=== PATIENT | female | born 1995 | race American Indian/Alaskan Native ===

== ENCOUNTER 2016-03-11 21:40 | Emergency (ER) | payer MEDICAID ==
[2016-03-11 22:05] VITALS: BP 142/95
[2016-03-11 22:30] LABS: Basophils % (Auto) 0.6 % (0.0-1.8); Eosinophils % (Auto) 2.1 % (0.0-4.3); Hematocrit 37.9 % (30.3-42.9); Hemoglobin 12.7 gm/dl (10.1-14.3); Mean Corpuscular HGB Conc 34 % (30-34); Mean Corpuscular Hemoglobin 28 pg (28-32); Mean Corpuscular Volume 83 fl (79-97); Platelet Count 237 K/mm3 (140-440); Red Blood Count 4.56 M/mm3 (3.65-5.03); Red Cell Distribution Width 14.3 % (13.2-15.2); White Blood Count 5.4 K/mm3 (4.5-11.0)
[2016-03-11 22:49] LABS: Alanine Aminotransferase 13 units/L (7-56); Albumin 4.1 g/dL (3.9-5); Albumin/Globulin Ratio 1.5 %; Alkaline Phosphatase 86 units/L (35-129); Anion Gap 19 mmol/L; Bilirubin,Total < 0.2 mg/dL (0.1-1.2); Blood Urea Nitrogen 9 mg/dL (7-17); Carbon Dioxide 21 mmol/L (22-30); Chloride 103.2 mmol/L (98-107); Glucose 101 mg/dL (65-100); Lipase 28 units/L (13-60); Potassium 4.1 mmol/L (3.6-5.0); Sodium 139 mmol/L (137-145); Total Protein 6.8 g/dL (6.3-8.2)
[2016-03-11 23:25] LABS: Bilirubin,Urine NEG (Negative); Blood,Urine NEG (Negative); Ketones,Urine NEG (Negative); Leukocyte Esterase,Urine NEG (Negative); Mucus,Urine FEW /HPF; Nitrite,Urine NEG (Negative); Protein,Urine <15 mg/dL mg/dL (Negative); Urobilinogen,Urine < 2.0 mg/dL (<2.0)
== END 2016-03-12 20:08 | disposition left against medical advice (07) ==
LOC: ED 21:40
DX: R10.30 Lower abdominal pain, unspecified (principal); Z53.21 Procedure and treatment not carried out due to patient leaving prior to being seen by health care provider
CPT/HCPCS: 36415; 80053; 81001; 81025; 83690; 85025

== ENCOUNTER 2016-03-12 21:20 | Emergency (ER) | payer MEDICAID ==
[2016-03-13 00:30] VITALS: BP 135/69
[2016-03-13 01:26] LABS: Basophils % (Auto) 0.6 % (0.0-1.8); Hemoglobin 12.8 gm/dl (10.1-14.3); Mean Corpuscular HGB Conc 34 % (30-34); Mean Corpuscular Hemoglobin 28 pg (28-32); Mean Corpuscular Volume 83 fl (79-97); Platelet Count 237 K/mm3 (140-440); Red Blood Count 4.59 M/mm3 (3.65-5.03); Red Cell Distribution Width 14.3 % (13.2-15.2); White Blood Count 5.8 K/mm3 (4.5-11.0)
[2016-03-13 01:27] LABS: Bilirubin,Urine NEG (Negative); Blood,Urine NEG (Negative); Ketones,Urine NEG (Negative); Leukocyte Esterase,Urine SM (Negative); Mucus,Urine FEW /HPF; Nitrite,Urine NEG (Negative); Protein,Urine <15 mg/dL mg/dL (Negative); RBC,Urine < 1.0 /HPF (0.0-6.0); Urobilinogen,Urine < 2.0 mg/dL (<2.0)
[2016-03-13 01:30] LABS: Alanine Aminotransferase 12 units/L (7-56); Albumin 3.7 g/dL (3.9-5); Albumin/Globulin Ratio 1.2 %; Alkaline Phosphatase 86 units/L (35-129); Bilirubin,Total < 0.2 mg/dL (0.1-1.2); Blood Urea Nitrogen 8 mg/dL (7-17); Calcium 8.8 mg/dL (8.4-10.2); Carbon Dioxide 23 mmol/L (22-30); Chloride 101.1 mmol/L (98-107); Glucose 120 mg/dL (65-100); Lipase 25 units/L (13-60); Potassium 3.9 mmol/L (3.6-5.0); Sodium 137 mmol/L (137-145); Total Protein 6.8 g/dL (6.3-8.2)
[2016-03-13 01:40] LABS: Anion Gap 17 mmol/L
--- NOTE | 2016-03-13 08:09 | ED Elopement Review ---
ED Pt Elopement review - Results review Lab results: Laboratory Tests 03/13/16 03/13/16 03/13/16 00:38 00:38 01:05 WBC 5.8 RBC 4.59 Hgb 12.8 Hct 38.0 MCV 83 MCH 28 MCHC 34 RDW 14.3 Plt Count 237 Lymph % (Auto) 35.2 H [place] % (Auto) 7.3 Eos % (Auto) 2.0 Baso % (Auto) 0.6 Lymph # 2.1 [place] # 0.4 Eos # 0.1 Baso # 0.0 Seg Neutrophils % 54.9 Seg Neutrophils # 3.2 Sodium 137 Potassium 3.9 Chloride 101.1 Carbon Dioxide 23 Anion Gap 17 BUN 8 Creatinine 0.5 L Estimated GFR > 60 BUN/Creatinine Ratio 16.00 Glucose 120 H Calcium 8.8 Total Bilirubin < 0.2 AST 15 ALT 12 Alkaline Phosphatase 86 Total Protein 6.8 Albumin 3.7 L Albumin/Globulin Ratio 1.2 Lipase 25 Urine Color Yellow Urine Turbidity Slightly-cloudy Urine pH 5.0 Ur Specific [place] 1.025 Urine Protein <15 mg/dl Urine Glucose (UA) Neg Urine Ketones Neg Urine Blood Neg Urine Nitrite Neg Ur Reducing Substances Not Reportable Urine Bilirubin Neg Urine Ictotest Not Reportable Urine Urobilinogen < 2.0 Ur Leukocyte Esterase Sm Urine WBC (Auto) 2.0 Urine RBC (Auto) < 1.0 U Epithel Cells (Auto) 14.0 H Urine Mucus Few Urine HCG, Qual Positive A - Call Back decision Pt Call Back Decision: Call pt to return to ED [facility] (or follow-up with an OB/ SERVICE CENTER TECHNICIAN for ultrasound to rule out ectopic )
== END 2016-03-13 06:00 | disposition left against medical advice (07) ==
LOC: ED 21:20
DX: O20.9 Hemorrhage in early pregnancy, unspecified (principal); R10.9 Unspecified abdominal pain; Z3A.00 Weeks of gestation of pregnancy not specified; Z53.21 Procedure and treatment not carried out due to patient leaving prior to being seen by health care provider
CPT/HCPCS: 36415; 80053; 81001; 81025; 83690; 85025

== ENCOUNTER 2016-03-13 18:00 | Emergency (ER) | payer MEDICAID ==
--- NOTE | 2016-03-13 18:23 | Emergency Department Report ---
Chief Complaint: Urogenital-Female Stated Complaint: ABD PAIN Time Seen by Provider: 03/13/16 18:16 - HPI History of Present Illness: 20-year-old female presents today with abdominal pain and vaginal spotting during . Last menstrual period was January 27. Denies fever, chills, nausea, vomiting, chest pain, shortness of breath, urinary symptoms, vaginal discharge. - ROS Review of Systems: Per HPI - Exam Vital Signs: Vital Signs 03/13/16 18:08 Temperature 98.6 F Pulse Rate 93 H Respiratory 20 Rate Blood Pressure 136/88 O2 Sat by Pulse 99 Oximetry Physical Exam: General: 20-year-old female in no acute distress. Well-developed, well- nourished. CV: Regular rate and rhythm. Lungs: Clear to auscultation bilaterally. Abdomen: No tenderness to palpation. No guarding or rebound tenderness. MSE screening note: Focused history and physical exam performed. Due to findings the following was ordered: ED Disposition for MSE Condition: Stable
[2016-03-13 19:02] LABS: Basophils % (Auto) 2.1 % (0.0-1.8); Eosinophils % (Auto) 1.9 % (0.0-4.3); Hematocrit 38.2 % (30.3-42.9); Hemoglobin 12.4 gm/dl (10.1-14.3); Mean Corpuscular HGB Conc 33 % (30-34); Mean Corpuscular Hemoglobin 27 pg (28-32); Mean Corpuscular Volume 84 fl (79-97); Platelet Count 219 K/mm3 (140-440); Red Blood Count 4.56 M/mm3 (3.65-5.03); Red Cell Distribution Width 14.1 % (13.2-15.2); White Blood Count 4.8 K/mm3 (4.5-11.0)
[2016-03-13 19:21] LABS: Anion Gap 16 mmol/L; BUN/Creatinine Ratio 16.66; Blood Urea Nitrogen 10 mg/dL (7-17); Calcium 8.6 mg/dL (8.4-10.2); Carbon Dioxide 22 mmol/L (22-30); Chloride 100.2 mmol/L (98-107); Glucose 91 mg/dL (65-100); Potassium 4.1 mmol/L (3.6-5.0); Sodium 134 mmol/L (137-145)
[2016-03-13 19:30] LABS: Bilirubin,Urine NEG (Negative); Blood,Urine NEG (Negative); Ketones,Urine NEG (Negative); Leukocyte Esterase,Urine NEG (Negative); Mucus,Urine FEW /HPF; Nitrite,Urine NEG (Negative); Protein,Urine <15 mg/dL mg/dL (Negative); RBC,Urine < 1.0 /HPF (0.0-6.0); Urobilinogen,Urine < 2.0 mg/dL (<2.0); WBC,Urine < 1.0 /HPF (0.0-6.0)
--- NOTE | 2016-03-13 21:15 | Emergency Department Report ---
ED Female HPI - General Chief complaint: Urogenital-Female Stated complaint: ABD PAIN Time Seen by Provider: 03/13/16 18:16 Source: patient, RN notes reviewed, old records reviewed Mode of arrival: Ambulatory Limitations: No Limitations - History of Present Illness Initial comments: This is a 20-year-old female, previously unknown to me. She is 1, para 0. She reports her LMP is the beginning of this previous January. She presents to the ER complaining of vaginal bleeding. Vaginal bleeding started a few days ago. It started after sexual intercourse. She also admits to 2 weeks of lower abdominal cramping. There is no right lower quadrant pain. There is no vomiting. There is no chest pain, shortness of breath or diaphoresis. No irritative or obstructive urinary symptoms. Has not started care thus far. MD Complaint: vaginal bleeding, pelvic pain -: Gradual, week(s) Radiation: suprapubic Severity: mild, moderate Consistency: intermittent Improves with: none Worsens with: none Are you Now?: Yes Associated Symptoms: vaginal bleeding, abdominal pain. denies: vaginal discharge, nausea/vomiting, fever/chills, headaches, loss of appetite, dysuria, hematuria, rash, seizure, shortness of breath, syncope, weakness - Related Data Sexually active: Yes Home Medications Medication Instructions Recorded Confirmed Last Taken Sertraline [Zoloft] 50 mg PO QDAY 07/01/13 07/01/13 07/01/13 09:00 traZODone [Desyrel] 100 mg PO QHS 07/01/13 07/01/13 06/30/13 20:00 Previous Rx's Medication Instructions Recorded Last Taken Type Acetaminophen/Codeine [Tylenol #3] 1 tab PO Q6H PRN #14 tab 07/01/13 Unknown Rx Doxycycline [Vibramycin CAP] 100 mg PO BID #14 capsule 07/01/13 Unknown Rx Clindamycin [Clindamycin CAP] 300 mg PO Q8H #30 cap 01/27/16 Unknown Rx HYDROcodone/APAP 5-325 [Ruth 1 each PO Q6HR PRN #10 tablet 01/27/16 Unknown Rx 5/325] Ibuprofen [Motrin] 800 mg PO Q8HR PRN #15 tablet 01/31/16 Unknown Rx Doxylamine/Pyridoxine HCl 1 each PO QHS PRN #30 tablet. 03/13/16 Unknown Rx [Hola Mixon 10-10 mg Tablet] Vit W-Ca,Fe,FA(<1 mg) 1 each PO QDAY #30 tablet 03/13/16 Unknown Rx [ Vitamins] Allergies Allergy/AdvReac Type Severity Reaction Status Date / Time No Known Allergies Allergy Verified 01/29/16 14:11 ED Review of Systems ROS: Stated complaint: ABD PAIN Other details as noted in HPI Constitutional: denies: fever Eyes: denies: vision change ENT: denies: epistaxis Respiratory: denies: cough Cardiovascular: denies: chest pain Gastrointestinal: abdominal pain Genitourinary: abnormal menses. denies: urgency, dysuria, frequency, hematuria Musculoskeletal: denies: back pain, joint swelling, arthralgia Skin: denies: rash, lesions Neurological: denies: headache, weakness, paresthesias Psychiatric: denies: anxiety, depression ED Past Medical Hx - Past Medical History Previous Medical History?: No Hx Psychiatric Treatment: Yes (depression) Additional medical history: vocal cord surgery - Surgical History Additional Surgical History: vocal cords repair - Social History Smoking Status: Never Smoker Substance Use Type: None - Medications Home Medications: Home Medications Medication Instructions Recorded Confirmed Last Taken Type Acetaminophen/Codeine [Tylenol #3] 1 tab PO Q6H PRN #14 tab 07/01/13 Unknown Rx Doxycycline [Vibramycin CAP] 100 mg PO BID #14 capsule 07/01/13 Unknown Rx Sertraline [Zoloft] 50 mg PO QDAY 07/01/13 07/01/13 07/01/13 09:00 History traZODone [Desyrel] 100 mg PO QHS 07/01/13 07/01/13 06/30/13 20:00 History Clindamycin [Clindamycin CAP] 300 mg PO Q8H #30 cap 01/27/16 Unknown Rx HYDROcodone/APAP 5-325 [Ruth 1 each PO Q6HR PRN #10 tablet 01/27/16 Unknown Rx 5/325] Ibuprofen [Motrin] 800 mg PO Q8HR PRN #15 tablet 01/31/16 Unknown Rx Doxylamine/Pyridoxine HCl 1 each PO QHS PRN #30 tablet. 03/13/16 Unknown Rx [Hola Mixon 10-10 mg Tablet] Vit W-Ca,Fe,FA(<1 mg) 1 each PO QDAY #30 tablet 03/13/16 Unknown Rx [ Vitamins] ED Physical Exam - General Limitations: No Limitations General appearance: alert, in no apparent distress - Head Head exam: Present: atraumatic, normocephalic - Eye Eye exam: Present: normal appearance, EOMI. Absent: nystagmus - ENT ENT exam: Present: normal exam, normal orophraynx, mucous membranes moist - Neck Neck exam: Present: normal inspection, full ROM. Absent: tenderness, meningismus - Respiratory Respiratory exam: Present: normal lung sounds bilaterally. Absent: respiratory distress, wheezes, rales, rhonchi, stridor, chest wall tenderness, accessory muscle use, decreased breath sounds - Cardiovascular Cardiovascular Exam: Present: regular rate, normal rhythm, normal heart sounds. Absent: bradycardia, tachycardia, irregular rhythm, systolic murmur, diastolic murmur, rubs, gallop - GI/Abdominal GI/Abdominal exam: Present: soft, normal bowel sounds. Absent: distended, tenderness, guarding, rebound, rigid, pulsatile mass - External exam: Present: normal external exam Speculum exam: Present: normal speculum exam. Absent: cervical discharge, vaginal bleeding, foreign body Bi-manual exam: Present: normal bi-manual exam, other (escorted by nurse Ave avila). Absent: cervical motion tendernes, adnexal mass - Extremities Exam Extremities exam: Present: normal inspection, full ROM, normal capillary refill. Absent: tenderness, pedal edema, joint swelling, calf tenderness - Back Exam Back exam: Present: normal inspection, full ROM. Absent: tenderness, CVA tenderness (R), CVA tenderness (L), muscle spasm, paraspinal tenderness, vertebral tenderness - Neurological Exam Neurological exam: Present: alert, oriented X3, normal gait, other (Extraocular movements intact. Tongue midline. No facial droop. Facial sensation intact to light touch in the V1, V2, V3 distribution bilaterally. 5 and 5 strength in 4 extremities.. Sensation is intact to light touch in 4 extremities.). Absent : motor sensory deficit - Psychiatric Psychiatric exam: Present: normal affect, normal mood - Skin Skin exam: Present: warm, dry, intact, normal color. Absent: rash ED Course Vital Signs 03/13/16 03/13/16 03/13/16 18:08 21:23 21:25 Temperature 98.6 F 98.8 F Pulse Rate 93 H 90 Respiratory 20 20 20 Rate Blood Pressure 136/88 Blood Pressure 146/84 [Right] O2 Sat by Pulse 99 99 99 Oximetry 03/13/16 03/13/16 22:31 22:53 Temperature Pulse Rate Respiratory 18 18 Rate Blood Pressure Blood Pressure [Right] O2 Sat by Pulse Oximetry - Reevaluation(s) Reevaluation #1: 03/13/16 22:31 Differential diagnosis: Miscarriage, ectopic , urinary tract infection assessment and plan: 20-year-old female with resolved vaginal bleeding, pelvic ultrasound that demonstrates intrauterine . Has no irritative or obstructive urinary symptoms. Urinalysis not consistent with urinary tract infection. Abdomen is soft and benign, with no right lower quadrant tenderness , rebound or guarding. The patient is instructed to follow up with outpatient primary care doctor/[facility]PER[facility] doctor. She has been observed in the ER for a prolonged period of time without any issues, and is walking around, making multiple requests to be discharged. Her belly is soft, she is planning a cellular phone. She will be discharged. ED Medical Decision Making - Lab Data Result diagrams: 03/13/16 18:44 03/13/16 18:44 Vital Signs 03/13/16 18:08 Temperature 98.6 F Pulse Rate 93 H Respiratory 20 Rate Blood Pressure 136/88 O2 Sat by Pulse 99 Oximetry Temp Pulse Resp BP Pulse Ox 98.6 F 93 H 20 136/88 99 03/13/16 18:08 03/13/16 18:08 03/13/16 18:08 03/13/16 18:08 03/13/16 18:08 Lab Results 03/13/16 03/13/16 03/13/16 Range/Units 18:44 18:44 18:44 WBC 4.8 (4.5-11.0) K/mm3 RBC 4.56 (3.65-5.03) M/mm3 Hgb 12.4 (10.1-14.3) gm/dl Hct 38.2 (30.3-42.9) % MCV 84 (79-97) fl MCH 27 L (28-32) pg MCHC 33 (30-34) % RDW 14.1 (13.2-15.2) % Plt Count 219 (140-440) K/mm3 Lymph % (Auto) 36.7 H (13.4-35.0) % [place] % (Auto) 9.9 H (0.0-7.3) % Eos % (Auto) 1.9 (0.0-4.3) % Baso % (Auto) 2.1 H (0.0-1.8) % Lymph # 1.8 (1.2-5.4) K/mm3 [place] # 0.5 (0.0-0.8) K/mm3 Eos # 0.1 (0.0-0.4) K/mm3 Baso # 0.1 (0.0-0.1) K/mm3 Seg Neutrophils % 49.4 (40.0-70.0) % Seg Neutrophils # 2.4 (1.8-7.7) K/mm3 Sodium 134 L (137-145) mmol/L Potassium 4.1 (3.6-5.0) mmol/L Chloride 100.2 (98-107) mmol/L Carbon Dioxide 22 (22-30) mmol/L Anion Gap 16 mmol/L BUN 10 (7-17) mg/dL Creatinine 0.6 L (0.7-1.2) mg/dL Estimated GFR > 60 ml/min BUN/Creatinine Ratio 16.66 % Glucose 91 (65-100) mg/dL Calcium 8.6 (8.4-10.2) mg/dL HCG, Quant 8912 H (0-4) mIU/mL Urine Color (Yellow) Urine Turbidity (Clear) Urine pH (5.0-7.0) Ur Specific [place] (1.003-1.030) Urine Protein (Negative) mg/dL Urine Glucose (UA) (Negative) mg/dL Urine Ketones (Negative) mg/dL Urine Blood (Negative) Urine Nitrite (Negative) Urine Bilirubin (Negative) Urine Urobilinogen (<2.0) mg/dL Ur Leukocyte Esterase (Negative) Urine WBC (Auto) (0.0-6.0) /HPF Urine RBC (Auto) (0.0-6.0) /HPF U Epithel Cells (Auto) (0-13.0) /HPF Urine Mucus /HPF Blood Type Ord Rhogam Gestat Weeks WEEKS 03/13/16 03/13/16 Range/Units 18:44 19:15 WBC (4.5-11.0) K/mm3 RBC (3.65-5.03) M/mm3 Hgb (10.1-14.3) gm/dl Hct (30.3-42.9) % MCV (79-97) fl MCH (28-32) pg MCHC (30-34) % RDW (13.2-15.2) % Plt Count (140-440) K/mm3 Lymph % (Auto) (13.4-35.0) % [place] % (Auto) (0.0-7.3) % Eos % (Auto) (0.0-4.3) % Baso % (Auto) (0.0-1.8) % Lymph # (1.2-5.4) K/mm3 [place] # (0.0-0.8) K/mm3 Eos # (0.0-0.4) K/mm3 Baso # (0.0-0.1) K/mm3 Seg Neutrophils % (40.0-70.0) % Seg Neutrophils # (1.8-7.7) K/mm3 Sodium (137-145) mmol/L Potassium (3.6-5.0) mmol/L Chloride (98-107) mmol/L Carbon Dioxide (22-30) mmol/L Anion Gap mmol/L BUN (7-17) mg/dL Creatinine (0.7-1.2) mg/dL Estimated GFR ml/min BUN/Creatinine Ratio % Glucose (65-100) mg/dL Calcium (8.4-10.2) mg/dL HCG, Quant (0-4) mIU/mL Urine Color Yellow (Yellow) Urine Turbidity Clear (Clear) Urine pH 6.0 (5.0-7.0) Ur Specific [place] 1.017 (1.003-1.030) Urine Protein <15 mg/dl (Negative) mg/dL Urine Glucose (UA) Neg (Negative) mg/dL Urine Ketones Neg (Negative) mg/dL Urine Blood Neg (Negative) Urine Nitrite Neg (Negative) Urine Bilirubin Neg (Negative) Urine Urobilinogen < 2.0 (<2.0) mg/dL Ur Leukocyte Esterase Neg (Negative) Urine WBC (Auto) < 1.0 (0.0-6.0) /HPF Urine RBC (Auto) < 1.0 (0.0-6.0) /HPF U Epithel Cells (Auto) < 1.0 (0-13.0) /HPF Urine Mucus Few /HPF Blood Type A POSITIVE Ord Rhogam Gestat Weeks Rh pos WEEKS - Radiology Data Radiology results: report reviewed, image reviewed Transvaginal and transabdominal ultrasound demonstrated intrauterine . Gestational sac is noted in the endometrial canal. It looks sac is noted. No pole is identified. Complex 2 cm lesion is noted this may be a collapsed list in the ovary. viability is uncertain. Critical care attestation.: If time is entered above; I have spent that time in minutes in the direct care of this critically ill patient, excluding procedure time. ED Disposition Clinical Impression: Threatened miscarriage in early Disposition: DISCHARGED TO HOME OR SELFCARE Is pt being admited?: No Does the pt Need Aspirin: No Condition: Stable Instructions: Threatened Miscarriage (ED) Additional Instructions: Rest and avoid heavy lifting. Avoid strenuous physical activity. Follow up with an telecasting engineer within the next week to initiate care. Take nausea medication, vitamins as directed. Do not engage in sexual activity until cleared by an [facility]ILITY OPERATOR. Return to the ER right away with new pain , worsening pain, migration of pain, fevers, chills, intractable nausea or vomiting, inability to tolerate liquid feeds, bleeding more than 2 pads soaked through and through per hour. Furthermore, blood pressure was slightly elevated. This should be followed up by an telecasting engineer within the next week as directed. Complications of hypertension/elevated blood pressure during included eclampsia, preeclampsia, and can cause disability, , paralysis. Prescriptions: Doxylamine/Pyridoxine HCl [Hola Mixon 10-10 mg Tablet] 1 each PO QHS PRN #30 tablet.dr ANTHONY Reason: Nausea Vit W-Ca,Fe,FA(<1 mg) [ Vitamins] 1 each PO QDAY #30 tablet Referrals: PRIMARY CAREMD [Primary Care Provider] - 3-5 Days CALI MARTINO MD [Staff Physician] - 3-5 Days [facility] [Provider Group] - 3-5 Days [facility] [Provider Group] - 3-5 Days
[2016-03-13 21:24] VITALS: BP 146/84
--- NOTE | 2016-03-13 22:04 | Ultrasound Report ---
FINAL REPORT PROCEDURE: US OB TRANSVAGINAL TECHNIQUE: Real-time transabdominal and transvaginal sonography of the uterus, placenta, amniotic fluid, adnexa, and fetus was performed with image documentation. Measurements were obtained to determine age/size. M-mode Doppler was used to document heartbeat. CPT 07927 and 67182 HISTORY: vag bleeding COMPARISON: No prior studies are available for comparison. FINDINGS: A gestational sac is seen in the endometrial canal. It contains a yolk sac but no pole is identified. Mean sac diameter is 1 cm corresponding to 5 weeks 6 days gestational age. Estimated date of delivery based on this measurement is November 07, 2016. Right ovary measures 3.7 x 1.9 x 2.2 cm. Left ovary measures 2.7 x 1.6 x 1.7 cm. Complex 2 cm lesion is seen in the that may be a collapsed cyst. No free pelvic fluid is seen. IMPRESSION: Likely very early IUP is seen at five weeks 6 days gestational age. viability is uncertain as pole is not yet identified. Correlation with serial quantitative beta HCG levels may be useful. Followup ultrasound in 1-2 weeks time is recommended.
--- NOTE | 2016-03-13 22:05 | Ultrasound Report ---
FINAL REPORT PROCEDURE: US OB < = 14 WEEKS FETUS TECHNIQUE: Real-time transabdominal and transvaginal sonography of the uterus, placenta, amniotic fluid, adnexa, and fetus was performed with image documentation. Measurements were obtained to determine age/size. M-mode Doppler was used to document heartbeat. CPT 64272 and 58345 HISTORY: Vaginal bleeding COMPARISON: No prior studies are available for comparison. FINDINGS: A gestational sac is seen in the endometrial canal. It contains a yolk sac but no pole is identified. Mean sac diameter is 1 cm corresponding to 5 weeks 6 days gestational age. Estimated date of delivery based on this measurement is November 07, 2016. Right ovary measures 3.7 x 1.9 x 2.2 cm. Left ovary measures 2.7 x 1.6 x 1.7 cm. Complex 2 cm lesion is seen in the that may be a collapsed cyst. No free pelvic fluid is seen. IMPRESSION: Likely very early IUP is seen at five weeks 6 days gestational age. viability is uncertain as pole is not yet identified. Correlation with serial quantitative beta HCG levels may be useful. Followup ultrasound in 1-2 weeks time is recommended.
[2016-03-13] MEDS ORDERED: TYLENOL ONE (22:26)
[2016-03-13] MEDS ORDERED: TYLENOL PO ONE (22:27)
== END 2016-03-13 23:00 | disposition home or self-care (01) ==
LOC: ED 18:00
DX: O20.0 Threatened abortion (principal); Z3A.01 Less than 8 weeks gestation of pregnancy
CPT/HCPCS: 36415; 76801; 76817; 80048; 81001; 84702; 85025; 86900; 86901

== ENCOUNTER 2016-07-14 10:20 | Outpatient (CLI) | payer MEDICAID ==
[2016-07-14] MEDS ORDERED: LACTATED RINGERS 500 ML IV ONE (10:30)
[2016-07-14 10:47] VITALS: BP 117/63
[2016-07-14 11:36] LABS: Urine Drugs of Abuse Note Disclamer
[2016-07-14 11:54] LABS: Bilirubin,Urine NEG (Negative); Blood,Urine NEG (Negative); Ketones,Urine 20 mg/dL (Negative); Leukocyte Esterase,Urine NEG (Negative); Mucus,Urine 1+ /HPF; Nitrite,Urine NEG (Negative); Protein,Urine <15 mg/dL mg/dL (Negative); Urobilinogen,Urine < 2.0 mg/dL (<2.0)
== END 2016-07-14 11:26 | disposition home or self-care (01) ==
LOC: TRG 10:20
PROVIDERS: ATTEND Obstetrics & Gynecology
DX: O47.02 False labor before 37 completed weeks of gestation, second trimester (principal); Z3A.23 23 weeks gestation of pregnancy
CPT/HCPCS: 80307; 81001

== ENCOUNTER 2016-08-13 19:38 | Outpatient (CLI) | payer MEDICAID ==
[2016-08-13 20:49] VITALS: BP 104/44
[2016-08-13] MEDS ORDERED: LACTATED RINGERS 500 ML IV ONE (22:57)
[2016-08-14 00:22] LABS: Bilirubin,Urine NEG (Negative); Blood,Urine NEG (Negative); Ketones,Urine TR mg/dL (Negative); Leukocyte Esterase,Urine NEG (Negative); Mucus,Urine 1+ /HPF; Nitrite,Urine NEG (Negative); Urobilinogen,Urine < 2.0 mg/dL (<2.0)
== END 2016-08-13 23:18 | disposition home or self-care (01) ==
LOC: TRG 19:38
PROVIDERS: ATTEND Obstetrics & Gynecology
DX: O26.853 Spotting complicating pregnancy, third trimester (principal); O26.893 Other specified pregnancy related conditions, third trimester; R25.2 Cramp and spasm; Z3A.28 28 weeks gestation of pregnancy
CPT/HCPCS: 81001; J7120; 59025

== ENCOUNTER 2018-07-01 22:18 | Emergency (ER) | payer MEDICAID ==
[2018-07-01 22:47] VITALS: BP 157/91
[2018-07-01 23:27] LABS: Basophils % (Auto) 0.3 % (0.0-1.8); Eosinophils # (Auto) 0.1 K/mm3 (0.0-0.4); Eosinophils % (Auto) 0.9 % (0.0-4.3); Hemoglobin 8.6 gm/dl (10.1-14.3); Lymphocytes % (Auto) 29.7 % (13.4-35.0); Mean Corpuscular HGB Conc 31 % (30-34); Monocytes # (Auto) 0.7 K/mm3 (0.0-0.8); Monocytes % (Auto) 9.8 % (0.0-7.3); Platelet Count 219 K/mm3 (140-440); Red Blood Count 4.39 M/mm3 (3.65-5.03)
[2018-07-01 23:35] LABS: Mean Corpuscular Volume 64 fl (79-97); Red Cell Distribution Width 21.9 % (13.2-15.2)
[2018-07-01 23:52] LABS: Alanine Aminotransferase 10 units/L (7-56); Albumin 3.2 g/dL (3.9-5); Blood Urea Nitrogen 9 mg/dL (7-17); Calcium 9.1 mg/dL (8.4-10.2); Hemolysis Index 1
[2018-07-02 00:19] LABS: BUN/Creatinine Ratio 23
== END 2018-07-02 01:37 | disposition left against medical advice (07) ==
LOC: ED 22:18
DX: R10.9 Unspecified abdominal pain (principal); Z53.21 Procedure and treatment not carried out due to patient leaving prior to being seen by health care provider
CPT/HCPCS: 36415; 80053; 84702; 85025

== ENCOUNTER 2018-10-15 20:57 | Observation (INO) | payer MEDICAID ==
--- NOTE | 2018-10-15 21:35 | History and Physical Report ---
History of Present Illness Date of examination: 10/15/18 Date of admission: 10/15/18 21:03 Chief complaint: headache, shaking, unable to get glucometer History of present illness: Pt is a 23 year old -[place] female NEGRITO 12/05/18 at 32w6d presents complaining of back pain, shaking and headache for two hours on the day of admission. She was discharged earlier today after being hospitalized for management of gestational diabetes and gestational hypertension. She reports that she was unable to get the glucometer she was prescribed secondary to an insurance issue. She has had very limited care x 1 visit with [facility] Motorcycle Mechanic Apprentice. Past History Past Medical History: hypertension (gestational hypertension), diabetes (gestational diabetes requiring insulin ), other (Obesity ) Past Surgical History: section Family/Genetic History: diabetes Social history: no significant social history - Obstetrical History Expected Date of Delivery: 12/05/18 Actual Gestation: 32 Week(s) 6 Day(s) : 2 Para: 1 Hx # Term Pregnancies: 1 Number of Pregnancies: 0 Spontaneous Abortions: 0 Induced : 0 Number of Living Children: 1 Medications and Allergies Allergies Allergy/AdvReac Type Severity Reaction Status Date / Time No Known Allergies Allergy Verified 10/12/18 15:39 Home Medications Medication Instructions Recorded Confirmed Last Taken Type Butalb/Acetaminophen/Caffeine 1 cap PO Q6HR PRN #30 cap 10/15/18 Unknown Rx [Fioricet 50-300-40 mg CAP] metFORMIN [Glucophage] 500 mg PO BID #60 tablet 10/15/18 Unknown Rx Review of Systems All systems: negative - Obstetrical FHR: auscultation normal Results Result Diagrams: 10/15/18 23:58 Abnormal lab results 10/15/18 Range/Units 21:31 POC Glucose 160 H (70-105) All other labs normal. Assessment and Plan A: IUP at 32w6d Headache, shaking without access to glucometer outpatient Gestational Hypertension s/p recent 24 hr urine with less than 300 mg of protein Gestational Diabetes requiring insuline, non-compliant Morbid Obesity Previous x 1 Insufficient care P: Admit to antepartum service for observation. Restart insulin regimen Case management consult to aid in obtaining glucometer Monitor maternal and status
[2018-10-15] MEDS ORDERED: TYLENOL PO PRN (23:06)
[2018-10-15] MEDS ORDERED: ZOFRAN IV PRN (23:06)
[2018-10-15] MEDS ORDERED: DEEP SEA NS PRN (23:06)
[2018-10-15] MEDS ORDERED: COLACE PO PRN (23:06)
[2018-10-15] MEDS ORDERED: D50W (25GM) Syringe IV PRN (23:13)
[2018-10-15] MEDS ORDERED: FIORICET PO PRN (23:15)
[2018-10-15] MEDS: AMBIEN PO PRN (23:57)
[2018-10-16 00:12] LABS: Hematocrit 26.4 % (30.3-42.9); Hemoglobin 8.4 gm/dl (10.1-14.3); Mean Corpuscular HGB Conc 32 % (30-34); Platelet Count 170 K/mm3 (140-440); Red Blood Count 3.85 M/mm3 (3.65-5.03); Red Cell Distribution Width 19.3 % (13.2-15.2)
[2018-10-16 00:13] LABS: Mean Corpuscular Volume 69 fl (79-97)
[2018-10-16] MEDS ORDERED: HumuLIN R SUB-Q SCH (07:30)
[2018-10-16] MEDS: HumuLIN R SUB-Q SCH ×2 (08:59→18:01)
[2018-10-16] MEDS ORDERED: PRENATAL VITAMIN PO SCH (10:00)
--- NOTE | 2018-10-16 13:36 | Consultation ---
History of Present Illness Consult date: 10/16/18 Reason for consult: other (Noncompliant GDM and GHTN) History of present illness: Ms. Kurt James is a 23 year old -[place] female NEGRITO 12/05/18 at 32w6d with a limited care with [facility] and history of noncompliance with GDM and GHTN. She recently signed out AMA on 10/15/18 from [facility]. She was readmitted last night, 10/15/18, due to complaints of "back pain, I was shaking, I was lightheaded, and I had a headache." She states "I don't want to be on insulin because I can't stick myself. They gave me some pills (Metformin) for my blod sugar yesterday for me to start taking." She denies PIH symptoms. She denies contractions, leaking of fluid, and bleeding. She reports positive movements. Past History Past Medical History: hypertension (gestational hypertension), diabetes (gestational diabetes requiring insulin ), other (Obesity ) Past Surgical History: section Family/Genetic History: diabetes - Obstetrical History : 2 Medications and Allergies Allergies Allergy/AdvReac Type Severity Reaction Status Date / Time No Known Allergies Allergy Verified 10/12/18 15:39 Home Medications Medication Instructions Recorded Confirmed Last Taken Type Butalb/Acetaminophen/Caffeine 1 cap PO Q6HR PRN #30 cap 10/15/18 Unknown Rx [Fioricet 50-300-40 mg CAP] metFORMIN [Glucophage] 500 mg PO BID #60 tablet 10/15/18 Unknown Rx Active Meds: Active Medications Acetaminophen (Tylenol) 650 mg PO Q4H PRN PRN Reason: Pain MILD(1-3)/Fever >100.5/BAILEY Acetaminophen/Butalbital/Caffeine (Fioricet) 2 tab PO Q4H PRN PRN Reason: Headache Dextrose (D50w (25gm) Syringe) 50 ml IV PRN PRN PRN Reason: Hypoglycemia Docusate Sodium (Colace) 100 mg PO Q12H PRN PRN Reason: Constipation Insulin Human NPH (Humulin N) 44 unit SUB-Q QDDIAB AISHA Last Admin: 10/16/18 09:00 Dose: 44 unit Documented by: Insulin Human NPH (Humulin N) 14 unit SUB-Q QPM@2200 [facility] Insulin Human Regular (Humulin R) 20 units SUB-Q QDDIAB AISHA Last Admin: 10/16/18 08:59 Dose: 20 units Documented by: Insulin Human Regular (Humulin R) 14 units SUB-Q QPMDIAB [facility] Insulin Human Regular (Humulin R) 0 units SUB-Q ACHS [facility]; Protocol Multivitamins/Iron/Calcium ( Vitamin) 1 each PO QDAY [facility] Ondansetron HCl (Zofran) 4 mg IV Q6H PRN PRN Reason: Nausea And Vomiting Sodium Chloride (Deep Sea) 2 spray NS Q4H PRN PRN Reason: Congestion Zolpidem Tartrate (Ambien) 10 mg PO ONCE PRN PRN Reason: Sleep Last Admin: 10/15/18 23:57 Dose: 10 mg Documented by: Review of Systems Constitutional: other (denies fatigue, malaise, fevers) Eyes: other (denies visual disturbances) Ears, nose, mouth and throat: deferred Cardiovascular: lightheadedness, leg edema, other (denies chest pain, palpitations, SOB) Respiratory: other (denies SOB, wheezing, coughing) Breasts: deferred Gastrointestinal: other (denies diarrhea, constipation, nausea, RUQ pain) Genitourinary: other (denies contractions, leaking of fluid, and bleeding) Rectal Exam: deferred Neurological: other (denies headaches) - Vital Signs Vital signs: Vital Signs Pulse BP 98 H 136/64 10/15/18 22:44 10/15/18 22:44 Temp Pulse Resp BP Pulse Ox 98 F 100 H 20 131/69 10/15/18 23:45 10/16/18 11:48 10/15/18 23:45 10/16/18 11:48 Results Result Diagrams: 10/15/18 23:58 Abnormal lab results 10/15/18 10/15/18 10/16/18 Range/Units 21:31 23:58 06:23 Hgb 8.4 L (10.1-14.3) gm/dl Hct 26.4 L (30.3-42.9) % MCV 69 L (79-97) fl MCH 22 L (28-32) pg RDW 19.3 H (13.2-15.2) % POC Glucose 160 H 127 H (70-105) 10/16/18 Range/Units 11:57 Hgb (10.1-14.3) gm/dl Hct (30.3-42.9) % MCV (79-97) fl MCH (28-32) pg RDW (13.2-15.2) % POC Glucose 113 H (70-105) All other labs normal. Assessment and Plan A- IUP at 32w6d VSS- BPs 130s/60s Denies PIH symptoms Glucose levels stable on sliding scale insulin Noncompliant GDM- noncompliance with outpatient managemet Noncompliant GHTN- s/p 24 hour urine protein with previous admission Morbid Obesity Previous x 1 Insufficient care I discussed with Ms. James and her mother about the importance of compliance with GDM and GHTN diagnoses. She was informed that without proper management and control of GDM/GHTN, poor maternal and risks can arise especially increased risk for stroke, placental abruption, and intrauterine demise. I discussed compliance of at home glucose monitoring with following an ADA diet in addition to medication management for patient. She and her mother verbalized understanding. P- Continue plan of care With control of blood glucose levels, pt could be discharged Continue insulin management while inpatient. Case management consult to aid in obtaining glucometer monitoring Monitor for Preeclampsia symptoms. Thank you for you consult. For additional questions/concerns, please contact [facility] lease administration supervisor MD (Dr. Lal).
[2018-10-16] MEDS ORDERED: LACTATED RINGERS 1,000 ML ONE (15:04)
--- NOTE | 2018-10-16 16:19 | Ultrasound Report ---
ULTRASOUND BIOPHYSICAL PROFILE ULTRASOUND OB LIMITED INDICATION: UNABLE TO LOCATE HEART TONES. well-being. TECHNIQUE: Transabdominal ultrasound imaging. COMPARISON: 10/14/2008 FINDINGS: breathing movement = 2 Gross body movement = 2 tone = 2 Qualitative amniotic fluid volume = 2 Total biophysical score = 8/8 Amniotic fluid index is 11.4 cm. Presentation is breech. heart rate is 137 beats per minute. IMPRESSION: biophysical profile equals 8/8. Signer Name: Madhu Prieto Jr, MD Signed: 10/16/2018 4:15 PM Workstation Name: [id number]
[2018-10-16] MEDS: AMBIEN PO PRN (20:17)
--- NOTE | 2018-10-17 07:48 | Progress Note ---
Assessment and Plan A: IUP at 33w0d Gestational Hypertension s/p recent 24 hr urine with less than 300 mg of protein Gestational Diabetes requiring insuline, non-compliant Morbid Obesity Previous x 1 Insufficient care P: Ensure pt had glucometer Consider discharge later today. Subjective - Subjective Date of service: 10/17/18 Principal diagnosis: IUP at 33 wks, GHTN, GDM, Morbid Obesity, Insufficient PNC Interval history: Pt feels frustrated and feels the nursing staff wants her to go home so she attempted to leave AMA last night. Today she is feeling better. No obstetric complaints. Patient reports: no new complaints Objective - Vital Signs Vital Signs: Vital Signs - 12hr 10/16/18 10/16/18 10/16/18 20:17 20:58 21:58 Pulse Rate 100 H Respiratory 18 18 Rate Blood Pressure 126/59 - Exam Abdomen: Present: soft (obese, gravid ) Uterus: Present: normal FHR: auscultation normal Uterine Contraction Monitor Mode: External Uterine Contraction Pattern: Absent Uterine Tone Measurement Phase: Resting Extremities: edema - Labs Labs: Abnormal Labs 10/15/18 10/15/18 10/16/18 21:31 23:58 06:23 Hgb 8.4 L Hct 26.4 L MCV 69 L MCH 22 L RDW 19.3 H POC Glucose 160 H 127 H 10/16/18 10/16/18 11:57 18:04 Hgb Hct MCV MCH RDW POC Glucose 113 H 122 H Laboratory Results - last 24 hr 10/16/18 10/16/18 10/16/18 11:57 18:04 23:21 POC Glucose 113 H 122 H 103
[2018-10-17] MEDS: HumuLIN R SUB-Q SCH ×2 (08:34→17:22)
--- NOTE | 2018-10-17 17:58 | Event Note ---
Date: 10/17/18 Pt informed that I would like her to have her glucometer in hand prior to discharge but her only transportation is refusing to return until patient is discharged. All glucose values currently within range. Plan to discharge pt with follow up in 1 week in the office and with MFM.
[2018-10-17 18:04] VITALS: BP 133/54
--- NOTE | 2018-10-17 18:05 | Discharge Summary ---
Providers - Providers Date of Admission: 10/15/18 21:03 Date of discharge: 10/17/18 Attending physician: ARMIN PERRY 10/15/18 23:06 Consult to Physician [CONS] Routine Comment: Consulting Provider: YUKI SCHAFFER Physician Instructions: Reason For Exam: IUP art 32 wks, gdm, ghtn, noncompliant 10/15/18 23:07 Consult to Dietitian/Nutrition [CONS] Routine Physician Instructions: Reason For Exam: Reason for Consult: Diet education Primary care physician: ARMIN PERRY Hospitalization Reason for admission: other (headache) Procedure details: Diabetic teaching Fioricet administration Discharge diagnosis: other (IUP at 33 wks, GHTN GDM, Morbid Obesity, Insufficient care ) Hospital course: Pt was admitted for headache. She received glucose monitoring and insulin as recommended by MFM. She refuses to take insulin at home so she has been prescribed Metformin. She will follow up in the office and with MFM next week. Condition at discharge: Stable Disposition: DC-01 TO HOME OR SELFCARE - Discharge Diagnoses (1) Headache Status: Acute Qualifiers: Headache type: unspecified Headache chronicity pattern: unspecified pattern Intractability: not intractable Qualified Code(s): R51 - Headache (2) Gestational diabetes Status: Acute Qualifiers: Gestational diabetes mellitus control: unspecified Trimester: third trimester Qualified Code(s): O24.419 - Gestational diabetes mellitus in , unspecified control (3) Gestational hypertension Status: Acute Qualifiers: Trimester: third trimester Qualified Code(s): O13.3 - Gestational [-induced] hypertension without significant proteinuria, third trimester (4) Insufficient care Status: Acute Qualifiers: Trimester: third trimester Qualified Code(s): O09.33 - Supervision of with insufficient care, third trimester (5) Morbid obesity Status: Acute Plan - Discharge Medications Prescriptions: Butalb/Acetaminophen/Caffeine [Fioricet 50-300-40 mg CAP] 1 cap PO Q6HR PRN #30 cap PRN Reason: Headache metFORMIN [Glucophage] 500 mg PO BID #60 tablet - Provider Discharge Summary Activity: routine Diet: other (Diabetic 2200 calorie diet with 3 snacks per day) Additional instructions: [] Smoking cessation referral if applicable(refer to patient education folder for contact #) [] [facility] Call your doctor immediately for: * Fever > 100.5 * Heavy vaginal bleeding ( >1 pad per hour) * Severe persistent headache * Shortness of breath * Reddened, hot, painful area to leg or breast * Drainage or odor from incision. * Keep incision clean and dry at all times and follow doctor's instructions regarding bathing/showering - Follow up plan Follow up: ARMIN PERRY MD [Primary Care Provider] - 10/21/18 (Please call the office to schedule an appt on 10/21/18 or 10/22/18. Please bring your glucose log to all visits. )
== END 2018-10-17 18:28 | disposition home or self-care (01) ==
LOC: TRG 20:57 → LD 21:03 → INTOOBSV 21:03
PROVIDERS: ADMIT Obstetrics & Gynecology; ATTEND Obstetrics & Gynecology
DX: O26.893 Other specified pregnancy related conditions, third trimester (principal); R51 Headache; O13.3 Gestational [pregnancy-induced] hypertension without significant proteinuria, third trimester; O24.419 Gestational diabetes mellitus in pregnancy, unspecified control; Z3A.34 34 weeks gestation of pregnancy
CPT/HCPCS: 36415; 76815; 76819; 82962; 85027; 86850; 86900; 86901; 96372; G0378; J7120; J1815

== ENCOUNTER 2018-10-22 17:33 | Observation (INO) | payer MEDICAID ==
[2018-10-22 18:25] VITALS: BP 127/87
[2018-10-22] MEDS ORDERED: LACTATED RINGERS 500 ML IV ONE (19:39)
[2018-10-22 19:48] LABS: Bilirubin,Urine NEG (Negative); Blood,Urine NEG (Negative); Color,Urine Yellow (Yellow); Mucus,Urine 1+ /HPF; Urobilinogen,Urine < 2.0 mg/dL (<2.0)
[2018-10-22] MEDS ORDERED: GLUCOPHAGE PO ONE (20:00)
--- NOTE | 2018-10-22 21:26 | Ultrasound Report ---
ULTRASOUND BIOPHYSICAL PROFILE AND LIMITED OB ULTRASOUND INDICATION / CLINICAL INFORMATION: well-being. COMPARISON: None available. FINDINGS: BREATHING MOVEMENT = 2 GROSS BODY MOVEMENT = 2 TONE = 2 QUALITATIVE AMNIOTIC FLUID VOLUME = 2 TOTAL BIOPHYSICAL SCORE = 10/03 AMNIOTIC FLUID VOLUME (ENEIDA) = 23.2 cm PRESENTATION: Cephalic. HEART RATE (beats per minute): 137 IMPRESSION: biophysical profile = 10/03 Signer Name: Good Ansari MD Signed: 10/22/2018 9:22 PM Workstation Name: [id number]
== END 2018-10-22 23:10 | disposition home or self-care (01) ==
LOC: LD 17:33
PROVIDERS: ADMIT Obstetrics & Gynecology; ATTEND Obstetrics & Gynecology
DX: O24.419 Gestational diabetes mellitus in pregnancy, unspecified control (principal); Z3A.33 33 weeks gestation of pregnancy
CPT/HCPCS: 76815; 76819; 81001; 82962; G0378; G0379; J7120

== ENCOUNTER 2018-11-06 11:18 | Inpatient (IN) | payer MEDICAID ==
[2018-11-06] MEDS ORDERED: LACTATED RINGERS 1,000 ML ONE ×2 (13:31→17:30)
--- NOTE | 2018-11-06 13:53 | Consultation ---
History of Present Illness Consult date: 11/06/18 History of present illness: HPI 23 y/o NEGRITO 12/05/18 EGA at 35 6/7 weeks Presented with PTC's and Known GDM (Denies Pregest DM) Known Patient non compliant missing appointments-refused Insulin and not taking Metformin " I was to take 500 twice per day but not taking" Contractions q 2 to 7 minutes - closed per Dr. Sina Graham Denies leakage vag bleeding BS reported 110 [facility] US done 10/30/18 - EFW at 3400 grams 99% EFM Ctx q 2 to 7 minutes 140 reactive OB hist C/S at 39 weeks 9 pound baby Denies H/o Pregest DM Denies other med ds NKA No CDD No STD AFEB 119/57 Abd MO sl tender during contraction Ext NT tr edema DTR 03/01 no clonus Vag per Dr. Graham - closed Past History - Obstetrical History : 2 Medications and Allergies Allergies Allergy/AdvReac Type Severity Reaction Status Date / Time No Known Allergies Allergy Verified 10/12/18 15:39 Home Medications Medication Instructions Recorded Confirmed Last Taken Type Butalb/Acetaminophen/Caffeine 1 cap PO Q6HR PRN #30 cap 10/15/18 Unknown Rx [Fioricet 50-300-40 mg CAP] metFORMIN [Glucophage] 500 mg PO BID #60 tablet 10/15/18 Unknown Rx Butalb/Acetaminophen/Caffeine 1 cap PO Q6HR PRN #30 cap 10/17/18 Unknown Rx [Fioricet 50-300-40 mg CAP] metFORMIN [Glucophage] 500 mg PO BID #60 tablet 10/17/18 Unknown Rx - Vital Signs Vital signs: Vital Signs Pulse BP 102 H 119/57 11/06/18 11:38 11/06/18 11:38 Temp Pulse Resp BP Pulse Ox 98.0 F 102 H 24 119/57 98 11/06/18 12:14 11/06/18 13:39 11/06/18 12:14 11/06/18 11:38 11/06/18 13:39 Results All other labs normal. Assessment and Plan Impression: 1. [place] IUP at 35 6/7 weeks 2. GDM A2 - Noncompliant 3. PTL 4. Prior C/S 5. MO 6. LGA Recommendations: 1. Steroids for FLM 2. Reg Insulin for BS > 140 (if she will accept Sliding Scale Reg Insulin BS's Reg Insulin 140-160 4 units 161-180 6 units 181-200 8 units 201-220 10 units 221-240 12 Units 241-260 14 units 261-280 16 units 281-300 20 units Call > 300 3. Patient non compliant see above - Explained that if she refuses insulin and follow up we would proceed with repeat C/S also due to PTL 4. Patient understands early delivery could result in baby with resp difficulty and admission to NICU - 5. Labs: HbA1c, CBC, Type Screen, CMP, UA 6. Accuchecks fastings and 2 hour PP's 7. NICU consult 8. US - BPP 9. Discussed with Dr. Sina Graham
[2018-11-06] MEDS: CELESTONE SOLUSPAN IM SCH (15:24)
[2018-11-06 16:06] LABS: Basophils # (Auto) 0.1 K/mm3 (0.0-0.1); Basophils % (Auto) 0.8 % (0.0-1.8); Eosinophils % (Auto) 0.3 % (0.0-4.3); Hematocrit 28.2 % (30.3-42.9); Hemoglobin 8.7 gm/dl (10.1-14.3); Lymphocytes # (Auto) 1.6 K/mm3 (1.2-5.4); Lymphocytes % (Auto) 20.8 % (13.4-35.0); Mean Corpuscular HGB Conc 31 % (30-34); Monocytes # (Auto) 0.6 K/mm3 (0.0-0.8); Monocytes % (Auto) 8.3 % (0.0-7.3); Platelet Count 181 K/mm3 (140-440); Red Blood Count 4.21 M/mm3 (3.65-5.03); Red Cell Distribution Width 19.3 % (13.2-15.2)
[2018-11-06 16:14] LABS: Mean Corpuscular Volume 67 fl (79-97)
[2018-11-06] MEDS ORDERED: STADOL IV PRN (17:27)
[2018-11-06] MEDS ORDERED: SUBLIMAZE IV PRN (17:27)
[2018-11-06] MEDS ORDERED: BRETHINE IVP PRN (17:27)
[2018-11-06] MEDS ORDERED: BRETHINE SUB-Q PRN (17:27)
[2018-11-06] MEDS ORDERED: MINERAL OIL PO PRN (17:27)
[2018-11-06] MEDS ORDERED: ZOFRAN IV PRN (17:27)
[2018-11-06] MEDS ORDERED: PHENERGAN PO PRN (17:27)
[2018-11-06] MEDS ORDERED: NARCAN 0.4 MG/1 ML IV PRN (17:27)
--- NOTE | 2018-11-06 17:35 | History and Physical Report ---
History of Present Illness Date of examination: 11/06/18 Date of admission: 11/06/18 Chief complaint: contractions History of present illness: This is a 23 yo G2In her includes macrosomia and polyhydramnios followed by [facility]. 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 She arrive a day later with contractions. She was noted to be c/thick and high. She had an US for BPP and Aleta. She is a patient with very minimal limited care. Admitted several times for glucose control. patient had declined intervention of insulin but decided to take metformin. She refuses to continue following directions. Past History Past Medical History: other (morbid obesity ) Past Surgical History: section (x1) Family/Genetic History: none Social history: single. denies: smoking, alcohol abuse, prescription drug abuse - Obstetrical History Expected Date of Delivery: 12/05/18 Actual Gestation: 35 Week(s) 6 Day(s) : 2 Para: 1 Hx # Term Pregnancies: 1 Number of Pregnancies: 0 Spontaneous Abortions: 0 Induced : 0 Number of Living Children: 1 Medications and Allergies Allergies Allergy/AdvReac Type Severity Reaction Status Date / Time No Known Allergies Allergy Verified 10/12/18 15:39 Home Medications Medication Instructions Recorded Confirmed Last Taken Type Butalb/Acetaminophen/Caffeine 1 cap PO Q6HR PRN #30 cap 10/15/18 Unknown Rx [Fioricet 50-300-40 mg CAP] metFORMIN [Glucophage] 500 mg PO BID #60 tablet 10/15/18 Unknown Rx Butalb/Acetaminophen/Caffeine 1 cap PO Q6HR PRN #30 cap 10/17/18 Unknown Rx [Fioricet 50-300-40 mg CAP] metFORMIN [Glucophage] 500 mg PO BID #60 tablet 10/17/18 Unknown Rx Active Meds: Active Medications Betamethasone Acet/Betameth SodPhos (Celestone Soluspan) 12 mg IM Q24HR AISHA Last Admin: 11/06/18 15:24 Dose: 12 mg Documented by: Review of Systems All systems: negative - Vital Signs Vital signs: Vital Signs Pulse BP 102 H 119/57 11/06/18 11:38 11/06/18 11:38 Temp Pulse Resp BP Pulse Ox 98.8 F 104 H 22 139/81 97 11/06/18 16:02 11/06/18 16:37 11/06/18 16:02 11/06/18 16:37 11/06/18 13:49 - Physical Exam Breasts: Positive: normal Cardiovascular: Regular rate, Normal S1 Lungs: Positive: Clear to auscultation, Normal air movement Abdomen: Positive: normal appearance, soft, normal bowel sounds. Negative: distention, tenderness, guarding Genitourinary (Female): Positive: normal external genitalia, normal perenium Vagina: Positive: normal moisture Uterus: Positive: normal size Deep Tendon Reflex Grade: Normal +2 - Obstetrical FHR: category 1 Cervical Dilatation: 0 Uterine Contraction Pattern: Irregular Uterine Contraction Intensity: Mild Results Result Diagrams: 11/06/18 15:50 Abnormal lab results 11/06/18 11/06/18 Range/Units 15:50 15:50 Hgb 8.7 L (10.1-14.3) gm/dl Hct 28.2 L (30.3-42.9) % MCV 67 L (79-97) fl MCH 21 L (28-32) pg RDW 19.3 H (13.2-15.2) % [place] % (Auto) 8.3 H (0.0-7.3) % Hemoglobin A1c 7.3 H (4-6) % All other labs normal. Ultrasound: report reviewed Assessment and Plan A/P HD#1 at 35+6 weeks contractions Morbid obestiy Previous csec Gestational htn Non compliant Consult from [facility] consider csec tomorrow if not compliant with recommnedations BMZ x1 next dose tomorrow IVF, labs HbA1c, CBC, Type Screen, CMP, UA NPO Sliding scale ( see note form MFM . Reg Insulin for BS > 140 (if she will accept Sliding Scale Reg Insulin BS's Reg Insulin 140-160 4 units 161-180 6 units 181-200 8 units 201-220 10 units 221-240 12 Units 241-260 14 units 261-280 16 units 281-300 20 units Call > 300 Accuchecks fastings and 2 hour PP's NICU consult
[2018-11-06] MEDS ORDERED: AMBIEN PO PRN (17:52)
[2018-11-06] MEDS ORDERED: PITOCin/NS 30 UNIT/500ML 30 UNITS/500 ML BAG IV SCH (18:00)
[2018-11-06] MEDS ORDERED: LACTATED RINGERS 1,000 ML IV SCH (18:00)
[2018-11-06] MEDS ORDERED: XYLOCAINE 2% INFILTRATI ONE (18:27)
--- NOTE | 2018-11-06 18:42 | Ultrasound Report ---
LIMITED OB ULTRASOUND INDICATION: contractions COMPARISON: 10/22/2018 FINDINGS: There is a single intrauterine . Fetus is in a cephalic presentation. Amniotic fluid index i s 17.3 cm which is within normal limits. heart rate is 152 bpm. Impression: Amniotic fluid index is normal. cardiac activity is noted. BIOPHYSICAL PROFILE INDICATION: contractions COMPARISON: 10/22/2018 FINDINGS: breathing movements = 2/2 movements= 2/2 posture and tone = 2/2 Qualitative amniotic fluid volume = 2/2 IMPRESSION: Biophysical profile score is 8/8 Signer Name: Ernesto Perales MD Signed: 11/06/2018 6:38 PM Workstation Name: [id number]
[2018-11-06 18:50] LABS: Bacteria,Urine 1+ /HPF (Negative); Bilirubin,Urine NEG (Negative); Blood,Urine NEG (Negative); Color,Urine Yellow (Yellow); Mucus,Urine FEW /HPF; Protein,Urine <15 mg/dL mg/dL (Negative); Urobilinogen,Urine < 2.0 mg/dL (<2.0)
[2018-11-06] MEDS ORDERED: HumuLIN R SUB-Q ONE (22:30)
[2018-11-06] MEDS ORDERED: HumuLIN R ONE (22:33)
--- NOTE | 2018-11-07 07:47 | Progress Note ---
Assessment and Plan A: IUP at 36w0d contractions Gestational Diabetes- Non compliants Gestational Hypertension Morbid Obesity Previous x 1 P: Plan for repeat section after second dose of betamethasone this afternoon. Subjective - Subjective Date of service: 11/07/18 Principal diagnosis: IUP at 35 wks, gestational diabetes, gestational htn, morbid obesity Interval history: Pt continues to report contractions. Otherwise good movement. Patient reports: movement normal, contractions, no new complaints, no loss of fluid, no vaginal bleeding Objective - Vital Signs Vital Signs: Vital Signs - 12hr 11/06/18 11/06/18 11/06/18 21:16 21:30 22:30 Pulse Rate 105 H Respiratory 20 20 Rate Blood Pressure 138/80 11/07/18 02:34 Pulse Rate 98 H Respiratory Rate Blood Pressure 139/79 - Exam Breasts: deferred Abdomen: Present: soft (obese, gravid ) FHR: auscultation normal Uterine Contraction Pattern: Irregular Uterine Tone Measurement Phase: Resting Extremities: edema (trace ) - Labs Labs: Abnormal Labs 11/06/18 11/06/18 11/06/18 15:50 15:50 21:13 Hgb 8.7 L Hct 28.2 L MCV 67 L MCH 21 L RDW 19.3 H [place] % (Auto) 8.3 H POC Glucose 166 H Hemoglobin A1c 7.3 H Laboratory Results - last 24 hr 11/06/18 11/06/18 11/06/18 13:46 15:50 15:50 WBC 7.6 RBC 4.21 Hgb 8.7 L Hct 28.2 L MCV 67 L MCH 21 L MCHC 31 RDW 19.3 H Plt Count 181 Lymph % (Auto) 20.8 [place] % (Auto) 8.3 H Eos % (Auto) 0.3 Baso % (Auto) 0.8 Lymph # 1.6 [place] # 0.6 Eos # 0.0 Baso # 0.1 Seg Neutrophils % 69.8 Seg Neutrophils # 5.3 POC Glucose 85 Hemoglobin A1c 7.3 H Urine Color Urine Turbidity Urine pH Ur Specific [place] Urine Protein Urine Glucose (UA) Urine Ketones Urine Blood Urine Nitrite Urine Bilirubin Urine Urobilinogen Ur Leukocyte Esterase Urine WBC (Auto) Urine RBC (Auto) U Epithel Cells (Auto) Urine Bacteria (Auto) Urine Mucus Blood Type Antibody Screen 11/06/18 11/06/1811/06/19 16:30 18:00 21:13 WBC RBC Hgb Hct MCV MCH MCHC RDW Plt Count Lymph % (Auto) [place] % (Auto) Eos % (Auto) Baso % (Auto) Lymph # [place] # Eos # Baso # Seg Neutrophils % Seg Neutrophils # POC Glucose 166 H Hemoglobin A1c Urine Color Yellow Urine Turbidity Slightly-cloudy Urine pH 6.0 Ur Specific [place] 1.015 Urine Protein <15 mg/dl Urine Glucose (UA) Neg Urine Ketones 80 Urine Blood Neg Urine Nitrite Neg Urine Bilirubin Neg Urine Urobilinogen < 2.0 Ur Leukocyte Esterase Tr Urine WBC (Auto) 1.0 Urine RBC (Auto) 4.0 U Epithel Cells (Auto) 6.0 Urine Bacteria (Auto) 1+ Urine Mucus Few Blood Type A POSITIVE Antibody Screen Negative
[2018-11-07] MEDS ORDERED: BICITRA PO NR (09:04)
[2018-11-07] MEDS ORDERED: PEPCID IV ONE (09:04)
[2018-11-07] MEDS ORDERED: REGLAN IV ONE (09:04)
[2018-11-07] MEDS ORDERED: ceFAZolin 3 GM in NACL 0.9% 100 ML IV NR (09:15)
[2018-11-07] MEDS ORDERED: BICITRA PO ONE (09:30)
[2018-11-07] MEDS ORDERED: PEPCID IV NR (09:30)
[2018-11-07] MEDS ORDERED: ANCEF/STERILE WATER 2 GM/20 ML 2 GM/20 ML SYRINGE IV NR (10:00)
[2018-11-07] MEDS ORDERED: LACTATED RINGERS 1,000 ML IV SCH ×3 (10:00→21:41)
[2018-11-07] MEDS ORDERED: PITOCin/NS 20 UNIT/1000ML DRIP 20 UNITS/1,000 ML BAG IV SCH ×3 (10:00→21:41)
--- NOTE | 2018-11-07 11:15 | Consultation ---
Consult Note - Parent Education Parent(s) demonstrated understanding of all the information:: Yes Additional Comment: Consult ordered by OB team for poorly controlled gestational diabetes & LGA at 36 weeks gestation. I met with mother and reviewed complications associated with LGA and gestational diabetes. I explained that based on gestation alone, baby may be able to room-in with mother with frequent sugar checks based on baby's assessment immediately following delivery. However there is the potential for NICU admission for treatment of hypoglycemia and/or respiratory complications as well as potential cardiac complications related to IDM. Assessment and Plan - Assessment Gestation:: 36 Baby's gender: Female Additional Comment: LGA - Plan Plan: Agree with steroids Will attend delivery Please call NICU with questions
[2018-11-07] MEDS: REGLAN IV NR ×2 (12:40→16:04)
[2018-11-07] MEDS: CELESTONE SOLUSPAN IM SCH (15:29)
[2018-11-07] MEDS ORDERED: NARCAN 0.4 MG/1 ML IV PRN ×2 (16:14→21:41)
[2018-11-07] MEDS ORDERED: PHENERGAN PR PRN (16:14)
[2018-11-07] MEDS ORDERED: DILAUDID IV PRN ×2 (16:14)
[2018-11-07] MEDS ORDERED: PHENERGAN PO PRN (16:14)
[2018-11-07] MEDS ORDERED: ZOFRAN IV PRN ×2 (16:14→21:41)
--- NOTE | 2018-11-07 16:20 | Anesthesia Consultation ---
Anesthesia Consult and Med Hx Date of service: 11/07/18 - Airway Anesthetic Teeth Evaluation: Good ROM Head & Neck: Adequate Mental/Hyoid Distance: Adequate Mallampati Class: Class III Intubation Access Assessment: Possibly Difficult - Pulmonary Exam CTA: Yes - Cardiac Exam Cardiac Exam: RRR - Pre-Operative Health Status ASA Pre-Surgery Classification: ASA3 Proposed Anesthetic Plan: Epidural (morbid obesity, non-complent pt) - Pulmonary Hx Asthma: No COPD: No Hx Pneumonia: No - Cardiovascular System Hx Hypertension: No - Central Nervous System Hx Seizures: No Hx Psychiatric Problems: Yes (PICA, hx of cutting her wrist, depression) - Endocrine Hx Renal Disease: No Hx End Stage Renal Disease: No Hx Hypothyroidism: No Hx Hyperthyroidism: No - Hematic Hx Anemia: No Hx Sickle Cell Disease: No - Other Systems Hx Alcohol Use: No
--- NOTE | 2018-11-07 16:21 | Anesthesia Day of Surgery ---
Anesthesia Day of Surgery - Day of Surgery Patient Examined: Yes Patient H&P Reviewed: Yes Patient is NPO: Yes (9am full brealfeast)
[2018-11-07] MEDS ORDERED: DEXMEDETOMIDINE IV ONE (16:29)
[2018-11-07] MEDS ORDERED: SODIUM CHLORIDE FLUSH SYRINGE 10 ML IV NR ×2 (17:00→21:41)
[2018-11-07] MEDS ORDERED: ANCEF IV ONE (17:20)
[2018-11-07] MEDS ORDERED: ANCEF/STERILE WATER 2 GM/20 ML IV ONE (17:20)
[2018-11-07] MEDS ORDERED: TORADOL ONE (17:30)
[2018-11-07] MEDS ORDERED: ZOFRAN ONE (17:52)
[2018-11-07] MEDS ORDERED: XYLOCAINE 2%/ EPI 1:200,000 INFILTRATI ONE (17:52)
[2018-11-07] MEDS ORDERED: DILAUDID ONE (17:59)
[2018-11-07] MEDS ORDERED: VERSED ONE (18:02)
--- NOTE | 2018-11-07 18:23 | Procedure Note ---
OB Delivery Note - Delivery Date of Delivery: 11/07/18 Surgeon: ARMIN PERRY Estimated blood loss: other (800 ml) - Section Preop diagnosis: repeat , other (gestational diabetes, gestational hypertension, morbid obesity ) Postop diagnosis: same section procedure: section, repeat low transverse Disposition: PACU Complications: none Narrative: Please see operative note. - A at 1 minute: 6 at 5 minutes: 8 Gender: Female (3600g (7lb 15 oz) @ 1741 pm)
--- NOTE | 2018-11-07 18:39 | Post Anesthesia Evaluation ---
- Post Anesthesia Evaluation Patient Participated: Yes Airway Patent: Yes Stable Respiratory Function: Yes Nausea/Vomiting: No Temp > 96.8F: Yes Pain Manageable: Yes Adequeate Hydration: Yes Anesthesia Complications: No Block Receding Appropriately: Yes Patient on Ventilator: No
[2018-11-07] MEDS ORDERED: MYLICON PO PRN (21:41)
[2018-11-07] MEDS ORDERED: TYLENOL PO PRN (21:41)
[2018-11-07] MEDS ORDERED: TUCKS PAD TP PRN (21:41)
[2018-11-07] MEDS ORDERED: LANSINOH TP PRN (21:41)
[2018-11-07] MEDS ORDERED: D50W (25GM) Syringe IV PRN (21:41)
[2018-11-07] MEDS: TORADOL IV PRN (23:24)
[2018-11-08] MEDS: HumuLIN R SUB-Q SCH ×4 (00:29→18:46)
[2018-11-08] MEDS: ANCEF/NS 1 GM/50 ML 1 GM/50 ML BAG IV SCH ×2 (00:31→08:08)
[2018-11-08] MEDS: TORADOL IV PRN (06:18)
[2018-11-08] MEDS: PERCOCET 5/325 PO PRN ×3 (08:08→20:03)
[2018-11-08 08:16] LABS: Hematocrit 26.3 % (30.3-42.9)
[2018-11-08] MEDS: IBUPROFEN PO PRN (12:29)
[2018-11-08] MEDS: FEOSOL PO SCH (14:34)
--- NOTE | 2018-11-08 16:52 | Progress Note ---
Assessment and Plan A: POD# 1 s/p repeat section at 36 wks, GDM A2 non-compliant with insulin and glucose monitoring, Morbid Obesity, Insufficient Care P: Routine postoperative care. Subjective - Subjective Date of service: 11/08/18 Principal diagnosis: IUP at 36 wks, gestational diabetes, gestational htn, morbid obesity Interval history: Pt c/o abdominal pain only minimally improved with prescribed pain medication. She reports flatus. Patient reports: appetite normal, voiding normally, flatus, ambulating normally, no bowel movement : in NICU Objective - Vital Signs Latest vital signs: Vital Signs Temp Pulse Resp BP BP Pulse Ox 11/08/18 13:23 98.4 F 87 20 151/90 99 11/08/18 08:24 97.6 F 90 18 125/69 99 11/08/18 05:19 98.3 F 81 18 134/77 99 11/08/18 02:13 97.9 F 85 20 136/77 98 11/07/18 19:25 97.7 F 79 18 130/63 99 11/07/18 19:15 97.7 F 78 21 111/69 99 11/07/18 19:00 85 16 110/57 98 11/07/18 18:45 89 16 107/53 100 11/07/18 18:40 89 16 108/56 99 11/07/18 18:35 89 18 102/47 99 11/07/18 18:30 97.9 F 89 18 121/66 100 11/07/18 17:00 108 H 99 11/07/18 16:56 63 L 11/07/18 16:55 55 L 0 L Intake and Output 11/08/18 11/08/18 11/08/18 06:59 14:59 22:59 Intake Total 50 Output Total 1200 Balance -1150 Intake: IV 50 ANCEF/NS 1 GM/50 ML 1 gm 50 In 50 ml @ 100 mls/hr IV Q8H [facility] Rx#:[id number] Output: Urine 1200 Indwelling Catheter 1200 Other: Total, Output Amount 1200 - Exam Breasts: Present: deferred Cardiovascular: Present: Regular rate Lungs: Present: Clear to auscultation Abdomen: Present: soft (obese ), normal bowel sounds Extremities: Present: edema (1+) Incision: Present: dressed - Labs Labs: Abnormal lab results 09/11/08/18 11/08/18 Range/Units 00:20 05:51 07:43 Hgb 8.0 L (10.1-14.3) gm/dl Hct 26.3 L (30.3-42.9) % POC Glucose 276 H 181 H (70-105) 11/08/18 Range/Units 11:34 Hgb (10.1-14.3) gm/dl Hct (30.3-42.9) % POC Glucose 231 H (70-105)
[2018-11-08] MEDS ORDERED: BOOSTRIX IM ONE (18:25)
[2018-11-08] MEDS ORDERED: M-M-R II VACCINE SUB-Q ONE (18:25)
[2018-11-09] MEDS: PERCOCET 5/325 PO PRN ×6 (01:17→22:19)
[2018-11-09] MEDS: HumuLIN R SUB-Q SCH ×2 (06:35→14:02)
[2018-11-09] MEDS: FEOSOL PO SCH (10:04)
--- NOTE | 2018-11-09 12:08 | Progress Note ---
Assessment and Plan POD2 s/p repeat Acute on chronic anemia- iron supplementation Pre-gestational vs gestational diabetes- Medicine consult Accucheck fasting and 2-hr PP Vital signs stable Subjective - Subjective Date of service: 11/09/18 Principal diagnosis: Repeat c/s IUP at 36 wks, GDM, ghtn, morbid obesity Interval history: Pt is POD2 s/p repeat . Continued elevation in blood glucose. Patient reports: appetite normal, voiding normally, flatus, pain poorly controlled, ambulating normally, other (SOB when walking) : in NICU (for hypoglycemia), bottle feeding Objective - Vital Signs Latest vital signs: Vital Signs Temp Pulse Resp BP BP Pulse Ox 11/09/18 08:03 98.0 F 20 119/76 11/09/18 08:00 98.0 F 102 H 119/76 11/09/18 01:32 98.4 F 97 H 24 135/73 96 11/08/18 17:06 98.4 F 92 H 18 141/78 100 11/08/18 13:23 98.4 F 87 20 151/90 99 - Exam Lungs: Present: Normal air movement Abdomen: Present: normal appearance, soft Uterus: Present: normal, firm, fundal height below umbilicus Extremities: Present: normal, edema Incision: Present: dressed - Labs Labs: Abnormal lab results 11/08/18 11/09/18 11/09/18 Range/Units 18:01 00:07 05:39 POC Glucose 122 H 126 H 163 H (70-105)
[2018-11-09] MEDS: IBUPROFEN PO PRN (15:48)
--- NOTE | 2018-11-09 16:53 | Consultation ---
History of Present Illness - Reason for Consult Consult date: 11/09/18 Management of new onset Diabetes Requesting physician: JUAN A URIBE - History of Present Illness Patient is POD #2 . Elevated BG No history of Diabetes. On Metformin for obesity Past History Past Medical History: No medical history Past Surgical History: Social history: single. denies: smoking, alcohol abuse, prescription drug abuse Family history: hypertension Medications and Allergies Allergies Allergy/AdvReac Type Severity Reaction Status Date / Time No Known Allergies Allergy Verified 10/12/18 15:39 Home Medications Medication Instructions Recorded Confirmed Last Taken Type Butalb/Acetaminophen/Caffeine 1 cap PO Q6HR PRN #30 cap 10/15/18 Unknown Rx [Fioricet 50-300-40 mg CAP] metFORMIN [Glucophage] 500 mg PO BID #60 tablet 10/15/18 Unknown Rx Butalb/Acetaminophen/Caffeine 1 cap PO Q6HR PRN #30 cap 10/17/18 Unknown Rx [Fioricet 50-300-40 mg CAP] metFORMIN [Glucophage] 500 mg PO BID #60 tablet 10/17/18 Unknown Rx Active Meds: Active Medications Acetaminophen (Tylenol) 650 mg PO Q4H PRN PRN Reason: Fever >100.5/BAILEY Dextrose (D50w (25gm) Syringe) 50 ml IV PRN PRN PRN Reason: Hypoglycemia Ferrous Sulfate (Feosol) 325 mg PO QDAY AISHA Last Admin: 11/09/18 10:04 Dose: 325 mg Documented by: Hydromorphone HCl (Dilaudid) 0.5 mg IV Q4H PRN PRN Reason: breakthrough pain > 7/10 Last Admin: 11/07/18 21:37 Dose: 0.5 mg Documented by: Oxytocin/Sodium Chloride (Pitocin/Ns 20 Unit/1000ml Drip) 20 units in 1,000 mls @ 250 mls/hr IV DIRECT AISHA Lactated Ringer's (Lactated Ringers) 1,000 mls @ 125 mls/hr IV DIRECT AISHA Last Admin: 11/08/18 03:03 Dose: 125 mls/hr Documented by: Ibuprofen (Ibuprofen) 800 mg PO Q6H PRN PRN Reason: Pain, Mild (1-3) Last Admin: 11/09/18 15:48 Dose: 800 mg Documented by: Insulin Human Regular (Humulin R) 0 units SUB-Q Q6HR [facility]; Protocol Last Admin: 11/09/18 14:02 Dose: Not Given Documented by: Ketorolac Tromethamine (Toradol) 30 mg IV Q6H PRN PRN Reason: Pain, Moderate (4-6) Stop: 11/12/18 21:40 Last Admin: 11/08/18 06:18 Dose: 30 mg Documented by: Magnesium Hydroxide (Milk Of Magnesia) 30 ml PO QHS PRN PRN Reason: Constip Unrelieved By Senna Multi-Ingredient Ointment (Lansinoh) 1 applic TP PRN PRN PRN Reason: dryness/cracking Naloxone HCl (Narcan 0.4 Mg/1 Ml) 0.2 mg IV Q2MIN PRN PRN Reason: Res Rate </= 8 or 02 SAT < 92% Naloxone HCl (Narcan 0.4 Mg/1 Ml) 0.1 mg IV Q2MIN PRN PRN Reason: Res Rate </= 8 or 02 SAT < 92% Ondansetron HCl (Zofran) 4 mg IV Q8H PRN PRN Reason: Nausea And Vomiting Oxycodone/Acetaminophen (Percocet 5/325) 2 tab PO Q4H PRN PRN Reason: Pain, Moderate (4-6) Last Admin: 11/09/18 12:57 Dose: 2 tab Documented by: Promethazine HCl (Phenergan) 25 mg PO Q6H PRN PRN Reason: Nausea And Vomiting Promethazine HCl (Phenergan) 25 mg VA Q6H PRN PRN Reason: Nausea And Vomiting Simethicone (Mylicon) 80 mg PO Q6H PRN PRN Reason: Gas pain Witch Latesha/Glycerin (Tucks Pad) 1 each TP PRN PRN PRN Reason: Hemorrhoids/cleansing/soothing Review of Systems All systems: negative Exam - Constitutional Vitals: Temp Pulse Resp BP Pulse Ox 98.0 F 102 H 20 119/76 96 11/09/18 08:03 11/09/18 08:00 11/09/18 08:03 11/09/18 08:03 11/09/18 01:32 General appearance: Present: no acute distress, well-nourished - EENT Eyes: Present: PERRL ENT: hearing intact, clear oral mucosa - Neck Neck: Present: supple, normal ROM - Respiratory Respiratory effort: normal Respiratory: bilateral: CTA - Cardiovascular Heart rate: 78 Rhythm: regular Heart Sounds: Present: S1 & S2. Absent: rub, click - Extremities Extremities: no ischemia, pulses intact, pulses symmetrical, No edema Peripheral Pulses: within normal limits - Abdominal General gastrointestinal: Present: soft, non-tender, non-distended, normal bowel sounds Female genitourinary: Present: normal - Rectal Rectal Exam: deferred - Integumentary Integumentary: Present: clear, warm, dry - Musculoskeletal Musculoskeletal: gait normal, strength equal bilaterally - Psychiatric Psychiatric: appropriate mood/affect, intact judgment & insight - Neurologic Neurologic: CNII-XII intact, moves all extremities - Allied Health Allied health notes reviewed: nursing, case management Results - Labs CBC & Chem 7: 11/08/18 07:43 Labs: Abnormal lab results 11/08/18 11/09/18 11/09/18 Range/Units 18:01 00:07 05:39 POC Glucose 122 H 126 H 163 H (70-105) 11/09/18 Range/Units 14:08 POC Glucose 140 H (70-105) Assessment and Plan - Patient Problems (1) New onset type 2 diabetes mellitus Current Visit: Yes Status: Acute Plan to address problem: Patient on Metformin 500 mg po BID Add Glimepride 1 mg po qd F/u with pcp for management of Diabetes Patient counselled to loose weight by atleast 2 to 30 lbs Check A1c Patient is stable for discharge
[2018-11-09] MEDS: HumaLOG SUB-Q SCH (22:31)
[2018-11-10] MEDS: PERCOCET 5/325 PO PRN ×4 (02:46→23:42)
[2018-11-10] MEDS: IBUPROFEN PO PRN ×3 (02:46→18:08)
[2018-11-10] MEDS: FEOSOL PO SCH (09:08)
[2018-11-10] MEDS: AMARYL PO SCH (09:54)
--- NOTE | 2018-11-10 12:25 | Progress Note ---
Assessment and Plan POD3 s/p repeat Acute on chronic anemia- iron supplementation Diabetes mellitus- appreciate IM consult. Start on Glimepride qDay A1C today, can discharge before results are in Gestational hypertension- start on Labetalol 100mg BID F/u with PCP BP check at OB office in 1 week Discharge to home today Subjective - Subjective Date of service: 11/10/18 Principal diagnosis: Repeat c/s IUP at 36 wks, GDM, ghtn, morbid obesity Interval history: Pt is POD3 s/p repeat . Has had IM consult, started on Glimepride. Elevated BP, will start Labetalol. Patient reports: appetite normal, voiding normally, pain well controlled, flatus, ambulating normally [place]: in NICU, bottle feeding Objective - Vital Signs Latest vital signs: Vital Signs Temp Pulse Resp BP BP Pulse Ox 11/10/18 09:11 20 11/10/18 09:08 20 11/10/18 08:32 98.6 F 91 H 18 157/95 97 11/10/18 02:46 18 11/10/18 00:05 98.8 F 77 20 136/79 99 11/09/18 22:19 18 11/09/18 16:26 97.3 F L 87 18 148/82 100 Intake and Output 11/09/18 11/10/18 11/10/18 23:59 07:59 15:59 Intake Total 420 480 Balance 420 480 Intake: Oral 260 Intake, Free Water 160 480 Other: Total, Intake Amount 260 # Voids Indwelling Catheter 1 Void 1 # Bowel Movements 0 - Exam Lungs: Present: Normal air movement Abdomen: Present: normal appearance, soft Uterus: Present: normal, firm, fundal height below umbilicus Extremities: Present: normal, edema Incision: Present: normal, intact - Labs Labs: Abnormal lab results 11/06/18 11/09/18 11/09/18 Range/Units 16:30 14:08 22:32 POC Glucose 140 H 210 H (70-105) Crossmatch See Detail 11/10/18 Range/Units 10:01 POC Glucose 128 H (70-105) Crossmatch
--- NOTE | 2018-11-10 12:33 | Discharge Summary ---
Providers - Providers Date of Admission: 11/07/18 14:07 Date of discharge: 11/10/18 Attending physician: JUAN A URIBE MD 11/09/18 11:45 Consult to Physician [CONS] Urgent Comment: Consulting Provider: JAVIER BERMUDEZ Physician Instructions: Reason For Exam: Suspected pre-gestational diabetes 11/10/18 08:39 Consult to Dietitian/Nutrition [CONS] Routine Physician Instructions: 1800 kcal diet Reason For Exam: diet for new onset Diabetes Reason for Consult: Pt needs oral supplement Primary care physician: ARMIN PERRY Hospitalization Reason for admission: section, other (Elevated blood glucose and contractions) Delivery: Procedure: repeat low transverse Incision: normal, intact Other procedures: none complications: other (elevated blood pressure and blood glucose) Discharge diagnosis: delivery Hospital course: Pt arrived with contractions and elevated blood glucose. She received Betamethasone x2 doses and progressed to repeat . She was then diagnosed with chronic diabetes mellitus and gestational hypertension. She met discharge criteria on POD3. Condition at discharge: Fair Disposition: DC-01 TO HOME OR SELFCARE Plan - Discharge Medications Prescriptions: Glimepiride [Amaryl] 1 mg PO QAM 30 Days #30 tablet Ferrous Sulfate [Ferrous Sulfate 324 MG] 324 mg PO BID #60 tablet. Labetalol [Labetalol 100mg TAB] 100 mg PO BID #60 tablet Ibuprofen [Motrin] 600 mg PO Q6H PRN #60 tablet PRN Reason: Pain - Provider Discharge Summary Activity: routine, no sex for 6 weeks, no heavy lifting 4 weeks, no strenuous exercise Diet: routine Instructions: routine Additional instructions: [] Smoking cessation referral if applicable(refer to patient education folder for contact #) [] Refer to [facility] Booklet Call your doctor immediately for: * Fever > 100.5 * Heavy vaginal bleeding ( >1 pad per hour) * Severe persistent headache * Shortness of breath * Reddened, hot, painful area to leg or breast * Drainage or odor from incision. * Keep incision clean and dry at all times and follow doctor's instructions regarding bathing/showering Schedule appointment with primary care provider CHYNA. - Follow up plan Follow up: ARMIN PERRY MD [Primary Care Provider] - 7 Days (Please call to schedule appointment with [facility]'s enterprise records analyst.)
--- NOTE | 2018-11-10 13:37 | Event Note ---
Date: 11/10/18 Patient seen and examined and noted BP in 150/95. will draw PIH labs and start labetolol. If BP normalize, PIH w/u neg will consider d/c in am. close monitor of maternal condition
[2018-11-10 15:25] LABS: Alanine Aminotransferase 11 units/L (7-56); Uric Acid 4.6 mg/dL (3.5-7.6)
[2018-11-10] MEDS: MILK OF MAGNESIA PO PRN (18:07)
--- NOTE | 2018-11-10 18:32 | Event Note ---
Date: 11/10/18 Called and discussed with patient's nurse Ms.Joyce Gonzáles. Reports that patient feels better, vital signs are stable No medical needs at this point. No need to round on the patient at this point Patient's records reviewed Blood sugars are well controlled Ranging between 105 and 128, Vital signs stable Advised to continue current management Call us if you have questions or concerns as needed Patient needs to follow with her PMD for her diabetes and other medical needs. Sign off, thank you for this consult
[2018-11-10 18:51] LABS: Hemoglobin 7.1 gm/dl (10.1-14.3); Mean Corpuscular HGB Conc 31 % (30-34); Platelet Count 191 K/mm3 (140-440); Red Blood Count 3.44 M/mm3 (3.65-5.03); Red Cell Distribution Width 19.3 % (13.2-15.2)
[2018-11-10 18:57] LABS: Mean Corpuscular Volume 67 fl (79-97)
[2018-11-10] MEDS ORDERED: NORMODYNE PO SCH (22:00)
[2018-11-11] MEDS: HumuLIN R SUB-Q SCH ×6 (03:56→18:04)
[2018-11-11] MEDS: IBUPROFEN PO PRN ×2 (05:39→16:55)
--- NOTE | 2018-11-11 08:01 | Progress Note ---
Assessment and Plan A: POD#4 s/p repeat section at 36 wks, GDM A2 non-compliant with insulin and glucose monitoring, Morbid Obesity, Insufficient Care Dyspnea with ambulation Chest Pain Difficulty ambulating per pt P: EKG now Scheduled Pepcid Physical Therapy consult Consider transfusion of 1 unit PRBCs Subjective - Subjective Date of service: 11/11/18 Principal diagnosis: Repeat c/s IUP at 36 wks, GDM, ghtn, morbid obesity Interval history: Pt c/o chest pain this morning that she reports has been occurring intermittently over the weekend. She reports dyspnea with ambulation. She is passing flatus and has had a bowel movement. Patient reports: appetite normal, voiding normally, flatus, pain poorly controlled, ambulating normally : in NICU Objective - Vital Signs Latest vital signs: Vital Signs Temp Pulse Resp BP BP Pulse Ox 11/11/18 04:43 98.6 F 91 H 18 153/92 96 11/10/18 23:43 100 H 141/81 11/10/18 23:35 98.5 F 102 H 18 141/81 99 11/10/18 20:08 99.0 F 103 H 16 148/81 96 11/10/18 17:15 98.5 F 77 22 139/81 95 11/10/18 16:31 20 11/10/18 09:11 20 11/10/18 09:08 20 11/10/18 08:32 98.6 F 91 H 18 157/95 97 - Exam Breasts: Present: deferred Cardiovascular: Present: Regular rate Lungs: Present: Clear to auscultation Abdomen: Present: soft (obese ), normal bowel sounds Extremities: Present: edema Incision: Present: intact - Labs Labs: Abnormal lab results 11/06/18 11/09/18 11/10/18 Range/Units 16:30 22:32 10:01 RBC (3.65-5.03) M/mm3 Hgb (10.1-14.3) gm/dl Hct (30.3-42.9) % MCV (79-97) fl MCH (28-32) pg RDW (13.2-15.2) % Creatinine (0.7-1.2) mg/dL POC Glucose 210 H 128 H (70-105) Lactate Dehydrogenase (91-180) units/L Crossmatch See Detail 11/10/18 11/10/18 11/10/18 Range/Units 14:25 18:40 23:35 RBC 3.44 L (3.65-5.03) M/mm3 Hgb 7.1 L (10.1-14.3) gm/dl Hct 23.0 L (30.3-42.9) % MCV 67 L (79-97) fl MCH 21 L (28-32) pg RDW 19.3 H (13.2-15.2) % Creatinine 0.5 L (0.7-1.2) mg/dL POC Glucose 107 H (70-105) Lactate Dehydrogenase 405 H (91-180) units/L Crossmatch 11/11/18 Range/Units 05:46 RBC (3.65-5.03) M/mm3 Hgb (10.1-14.3) gm/dl Hct (30.3-42.9) % MCV (79-97) fl MCH (28-32) pg RDW (13.2-15.2) % Creatinine (0.7-1.2) mg/dL POC Glucose 116 H (70-105) Lactate Dehydrogenase (91-180) units/L Crossmatch
[2018-11-11] MEDS ORDERED: NACL 0.9% 500 ML 500 ML IV NR (08:30)
[2018-11-11] MEDS: PERCOCET 5/325 PO PRN ×4 (09:39→22:00)
[2018-11-11] MEDS: FEOSOL PO SCH (09:40)
[2018-11-11] MEDS: PEPCID PO SCH ×2 (09:40→22:01)
[2018-11-11] MEDS: AMARYL PO SCH (09:40)
[2018-11-11] MEDS: NORMODYNE PO SCH ×2 (10:03→22:01)
[2018-11-11] MEDS: HumaLOG SUB-Q SCH ×3 (10:07→22:00)
[2018-11-12 00:48] LABS: Hematocrit 27.5 % (30.3-42.9); Hemoglobin 8.7 gm/dl (10.1-14.3)
[2018-11-12] MEDS: AMARYL PO SCH (08:45)
[2018-11-12] MEDS: NORMODYNE PO SCH (08:56)
[2018-11-12] MEDS: PEPCID PO SCH (08:56)
[2018-11-12] MEDS: FEOSOL PO SCH (08:59)
[2018-11-12] MEDS: IBUPROFEN PO PRN (09:22)
[2018-11-12] MEDS: MILK OF MAGNESIA PO PRN (09:23)
--- NOTE | 2018-11-12 13:37 | Progress Note ---
Assessment and Plan A: POD#5 s/p repeat section at 36 wks, GDM A2 non-compliant with insulin and glucose monitoring, Morbid Obesity, Insufficient Care Resolved chest pain and SOB P: EKG normal findings Scheduled Pepcid Physical Therapy consult appreciated hem 8.7- feels better D/c home with f/u Sunday Subjective - Subjective Date of service: 11/12/18 Principal diagnosis: Repeat c/s IUP at 36 wks, GDM, ghtn, morbid obesity Interval history: This is a 23 yo G2In her includes macrosomia and polyhydramnios followed by MFM. P1 at35+6 weeks here via ambulance complaining of contractions and called direct service professional doctor all night. She arrive a day later with contractions. She was noted to be c/thick and high. She had an US for BPP and Aleta. She is a patient with very minimal limited care. Admitted several times for glucose control. patient had declined intervention of insulin but decided to take metformin. She refuses to continue following directions. Patient reports: appetite normal, voiding normally, pain well controlled, ambulating normally : in NICU Objective - Vital Signs Latest vital signs: Vital Signs Temp Pulse Resp BP BP Pulse Ox 11/12/18 08:56 72 11/12/18 08:15 98.2 F 89 18 147/85 99 11/12/18 04:00 98.7 F 78 18 122/79 11/12/18 00:00 98.4 F 61 18 131/61 11/11/18 22:01 142/80 11/11/18 19:30 99 F 88 18 141/76 11/11/18 18:09 20 11/11/18 16:55 20 11/11/18 15:40 99.6 F 102 H 18 147/90 98 11/11/18 15:38 99.6 F 102 H 18 147/90 98 11/11/18 15:20 99.5 F 93 H 20 136/76 98 11/11/18 14:50 98.8 F 99 H 20 127/68 99 11/11/18 14:20 98.7 F 99 H 20 145/72 100 11/11/18 13:50 97.8 F 96 H 20 147/70 98 11/11/18 13:35 98.7 F 91 H 18 129/68 98 Intake and Output 11/11/18 11/12/18 11/12/18 23:59 07:59 15:59 Intake Total 900 540 Output Total 200 Balance 700 540 Intake: Oral 600 240 Intake, Free Water 300 300 Output: Urine 200 Void 200 Other: Total, Intake Amount 240 240 Total, Output Amount 200 # Voids Void 1 1 - Exam Breasts: Present: normal Cardiovascular: Present: Regular rate, Normal S1 Lungs: Present: Clear to auscultation, Normal air movement Abdomen: Present: normal appearance, soft, normal bowel sounds. Absent: distention, tenderness, guarding Vulva: both: normal Uterus: Present: normal, firm. Absent: bogginess, tenderness Extremities: Present: normal Deep Tendon Reflex Grade: Normal +2 Incision: Present: normal, dry, intact - Labs Labs: Abnormal lab results 11/11/18 11/11/18 11/12/18 Range/Units 10:12 18:02 00:05 Hgb 8.7 L (10.1-14.3) gm/dl Hct 27.5 L (30.3-42.9) % POC Glucose 173 H (70-105) Crossmatch See Detail
--- NOTE | 2018-11-12 13:43 | Discharge Summary ---
Providers - Providers Date of Admission: 11/07/18 14:07 Date of discharge: 11/12/18 Attending physician: JUAN A URIBE MD 11/09/18 11:45 Consult to Physician [CONS] Urgent Comment: Consulting Provider: HENRY OHARA Physician Instructions: Reason For Exam: Suspected pre-gestational diabetes 11/10/18 08:39 Consult to Dietitian/Nutrition [CONS] Routine Physician Instructions: 1800 kcal diet Reason For Exam: diet for new onset Diabetes Reason for Consult: Pt needs oral supplement 11/11/18 07:50 Physical Therapy Evaluation and Treat [CONS] Urgent Comment: Assess need for walker Reason For Exam: s/p section, difficulty walking, MO Mode of Transport?: Walker Weight bearing status?: Full wt bearing Assistive devices?: No Referring MD: ARMIN PERRY Primary care physician: ARMIN PERRY Hospitalization Reason for admission: labor, other (non compliant morbid obese, DM) Delivery: Procedure: repeat low transverse Episiotomy: none Laceration: none Incision: normal, dry, intact Other procedures: none complications: none Hospital course: Patient had a repeat csec. She had some anemia and transfused one unit. Hgb 8. She had difficulty with walking seen by PT. baby in NIccu. She was seen by IM for mgt of DM. f/u in 3 days in clinic Condition at discharge: Good Disposition: DC-01 TO HOME OR SELFCARE Plan - Discharge Medications Prescriptions: Glimepiride [Amaryl] 1 mg PO QAM 30 Days #30 tablet Ferrous Sulfate [Ferrous Sulfate 324 MG] 324 mg PO BID #60 tablet. Labetalol [Labetalol 100mg TAB] 100 mg PO BID #60 tablet Labetalol [Labetalol 200mg TAB] 200 mg PO BID #60 tablet Ibuprofen [Motrin] 600 mg PO Q6H PRN #60 tablet PRN Reason: Pain Ibuprofen [Motrin] 800 mg PO Q8HR PRN #30 tablet PRN Reason: Pain, Moderate (4-6) Famotidine [Pepcid] 20 mg PO BID #60 tablet oxyCODONE /ACETAMINOPHEN [Percocet 5/325] 1 tab PO Q6HR PRN #30 tablet PRN Reason: Pain - Provider Discharge Summary Activity: routine, no sex for 6 weeks, no strenuous exercise Diet: routine Additional instructions: [] Smoking cessation referral if applicable(refer to patient education folder for contact #) [] Refer to [facility] Booklet Call your doctor immediately for: * Fever > 100.5 * Heavy vaginal bleeding ( >1 pad per hour) * Severe persistent headache * Shortness of breath * Reddened, hot, painful area to leg or breast * Drainage or odor from incision. * Keep incision clean and dry at all times and follow doctor's instructions regarding bathing/showering - Follow up plan Follow up: ARMIN PERRY MD [Primary Care Provider] - 7 Days (Please call to schedule appointment with [facility] inspector precision assembly.) Forms: C Discharge Summary, Discharge Signature Page
[2018-11-12 16:04] VITALS: BP 146/88
== END 2018-11-12 16:30 | disposition home health service (06) | DRG 765 ==
LOC: TRG 11:18 → EEVIPCON 11:18 → LD 11:19 → TRG 11-07 14:02 → LD 11-07 14:07 → APU 11-07 17:18 → OB 11-07 20:12
PROVIDERS: ADMIT Obstetrics & Gynecology; ATTEND Obstetrics & Gynecology
PROC: 10D00Z1 Extraction of Products of Conception, Low, Open Approach (ICD-10-PCS; principal; 2018-11-07)
PROC: 0JB80ZZ Excision of Abdomen Subcutaneous Tissue and Fascia, Open Approach (ICD-10-PCS; 2018-11-07)
PROC: 3E0234Z Introduction of Serum, Toxoid and Vaccine into Muscle, Percutaneous Approach (ICD-10-PCS; 2018-11-08)
PROC: 30233N1 Transfusion of Nonautologous Red Blood Cells into Peripheral Vein, Percutaneous Approach (ICD-10-PCS; 2018-11-11)
DX: O34.211 Maternal care for low transverse scar from previous cesarean delivery (principal); O60.14X0 Preterm labor third trimester with preterm delivery third trimester, not applicable or unspecified; O40.3XX0 Polyhydramnios, third trimester, not applicable or unspecified; O99.214 Obesity complicating childbirth; O99.03 Anemia complicating the puerperium; O36.63X0 Maternal care for excessive fetal growth, third trimester, not applicable or unspecified; O75.89 Other specified complications of labor and delivery; R19.09 Other intra-abdominal and pelvic swelling, mass and lump; O13.4 Gestational [pregnancy-induced] hypertension without significant proteinuria, complicating childbirth; O24.425 Gestational diabetes mellitus in childbirth, controlled by oral hypoglycemic drugs; E66.01 Morbid (severe) obesity due to excess calories; Z3A.35 35 weeks gestation of pregnancy; Z37.0 Single live birth; Z71.3 Dietary counseling and surveillance; Z82.49 Family history of ischemic heart disease and other diseases of the circulatory system; Z91.19 Patient's noncompliance with other medical treatment and regimen; Z23 Encounter for immunization
CPT/HCPCS: 36415; 76815; 76819; 81001; 82565; 82962; 83036; 83615; 84450; 84460; 84550; 85014; 85018; 85025; 85027; 86592; 86850; 86900; 86901; 86920; 88307; 93005; 93010; G0378; J0595; J0690; J0702; J1170; J1815; J1885; J2250; J2405; J2590; J2765; J3490; J7040; J7120; P9016

== ENCOUNTER 2018-11-26 19:40 | Emergency (ER) | payer MEDICAID ==
[2018-11-26] MEDS ORDERED: KETOROLAC 30 MG/1 ML INJ IV ONE (20:13)
[2018-11-26] MEDS ORDERED: SODIUM CHLORIDE 0.9% 1000 ML 1,000 ML IV ONE (20:13)
[2018-11-26] MEDS ORDERED: FAMOTIDINE 20 MG/2 ML INJ IV ONE (20:13)
[2018-11-26] MEDS ORDERED: ONDANSETRON 4 MG/2 ML INJ IV ONE (20:13)
[2018-11-26 20:41] LABS: Basophils % (Auto) 0.4 % (0.0-1.8); Eosinophils % (Auto) 0.5 % (0.0-4.3); Hematocrit 26.9 % (30.3-42.9); Hemoglobin 8.5 gm/dl (10.1-14.3); Lymphocytes # (Auto) 0.8 K/mm3 (1.2-5.4); Lymphocytes % (Auto) 15.6 % (13.4-35.0); Mean Corpuscular HGB Conc 31 % (30-34); Mean Corpuscular Volume 71 fl (79-97); Monocytes # (Auto) 0.6 K/mm3 (0.0-0.8); Monocytes % (Auto) 10.4 % (0.0-7.3); Platelet Count 187 K/mm3 (140-440)
[2018-11-26 20:44] LABS: Red Cell Distribution Width 23.7 % (13.2-15.2)
[2018-11-26 21:01] LABS: Alanine Aminotransferase 15 units/L (7-56); Albumin 3.2 g/dL (3.9-5); BUN/Creatinine Ratio 20; Blood Urea Nitrogen 10 mg/dL (7-17); Calcium 8.4 mg/dL (8.4-10.2); Hemolysis Index 2
--- NOTE | 2018-11-26 22:51 | XRay Report ---
CHEST 2 VIEWS 2122 INDICATION / CLINICAL INFORMATION: MAIN: COUGH, FEVER PT SD JUST HAD A X2 WKS..HEAVY BLEE DING...JTS COMPARISON: None available. FINDINGS: SUPPORT DEVICES: None. HEART / MEDIASTINUM: No significant abnormality. LUNGS / PLEURA: Mildly congested appearance is noted. No pleural effusions are seen. No areas of cons olidation are noted. The extreme right lower lateral chest is excluded on PA view. No pneumothorax. ADDITIONAL FINDINGS: No significant additional findings. IMPRESSION: Mild congestion Signer Name: Steven Carpenter MD Signed: 11/26/2018 10:46 PM Workstation Name: [id number]
[2018-11-27 01:47] LABS: Bilirubin,Urine NEG (Negative); Blood,Urine LG (Negative); Color,Urine Red (Yellow); Mucus,Urine 3+ /HPF; Urobilinogen,Urine < 2.0 mg/dL (<2.0)
[2018-11-27 01:49] LABS: Protein,Urine >500 mg/dL (Negative); RBC,Urine > 182.0 /HPF (0.0-6.0); WBC,Urine > 182.0 /HPF (0.0-6.0)
--- NOTE | 2018-11-27 02:04 | Emergency Department Report ---
ED Female HPI - General Chief complaint: Vaginal Bleeding Stated complaint: VAGINAL BLEEDING/POST DELIVERY Source: patient Mode of arrival: Ambulatory Limitations: No Limitations - History of Present Illness Initial comments: Patient is a A0 23-year-old -[place] female who is approximately 3 weeks and who is morbidly obese and with a history of hypertension and [id number] diabetes who presents to the ED with persistent heavy vaginal bleeding for the last 3 weeks after having a . Patient states that she always has a history of irregular menstrual cycle which sometimes lasts extensively for long. Patient denies dizziness, lightheadedness, syncope, chest pain, shortness of breath, abdominal pain, dysuria, urinary frequency and urgency, low back pain, fever and chills. MD Complaint: vaginal bleeding, other (diffuse abdominal pain) -: Gradual, week(s) (3) Location: other (vaginal) Radiation: non-radiating Severity: severe Severity scale (0 -10): 7 Quality: cramping, dull Consistency: constant Improves with: none Worsens with: none Are you Now?: No (3 weeks post-) Associated Symptoms: denies other symptoms, vaginal bleeding, abdominal pain, hematuria. denies: vaginal discharge, nausea/vomiting, fever/chills, headaches, loss of appetite, rash, seizure, shortness of breath, syncope, weakness - Related Data Sexually active: Yes : 2 Para: 2 A: 0 Previous Rx's Medication Instructions Recorded Last Taken Type Butalb/Acetaminophen/Caffeine 1 cap PO Q6HR PRN #30 cap 10/15/18 Unknown Rx [Fioricet 50-300-40 mg CAP] metFORMIN [Glucophage] 500 mg PO BID #60 tablet 10/15/18 Unknown Rx Butalb/Acetaminophen/Caffeine 1 cap PO Q6HR PRN #30 cap 10/17/18 Unknown Rx [Fioricet 50-300-40 mg CAP] metFORMIN [Glucophage] 500 mg PO BID #60 tablet 10/17/18 Unknown Rx Ferrous Sulfate [Ferrous Sulfate 324 mg PO BID #60 tablet. 11/10/18 Unknown Rx 324 MG] Glimepiride [Amaryl] 1 mg PO QAM 30 Days #30 tablet 11/10/18 Unknown Rx Ibuprofen [Motrin] 600 mg PO Q6H PRN #60 tablet 11/10/18 Unknown Rx Labetalol [Labetalol 100mg TAB] 100 mg PO BID #60 tablet 11/10/18 Unknown Rx oxyCODONE /ACETAMINOPHEN [Percocet 1 tab PO Q6HR PRN #30 tablet 11/10/18 Unknown Rx 5/325] Famotidine [Pepcid] 20 mg PO BID #60 tablet 11/11/18 Unknown Rx Ibuprofen [Motrin] 800 mg PO Q8HR PRN #30 tablet 11/11/18 Unknown Rx Labetalol [Labetalol 200mg TAB] 200 mg PO BID #60 tablet 11/11/18 Unknown Rx Ferrous Sulfate [Ferrous Sulfate 324 mg PO DAILY #30 tablet.dr 11/27/18 Unknown Rx 324 MG] cephALEXin [Keflex] 500 mg PO Q8HR #30 cap 11/27/18 Unknown Rx Allergies Allergy/AdvReac Type Severity Reaction Status Date / Time No Known Allergies Allergy Verified 10/12/18 15:39 ED Review of Systems ROS: Stated complaint: VAGINAL BLEEDING/POST DELIVERY Other details as noted in HPI Constitutional: denies: chills, fever Eyes: denies: eye pain, eye discharge, vision change ENT: denies: ear pain, throat pain Respiratory: denies: cough, shortness of breath, wheezing Cardiovascular: denies: chest pain, palpitations Endocrine: no symptoms reported Gastrointestinal: denies: abdominal pain, nausea, diarrhea Genitourinary: abnormal menses, other (heavy vaginal bleeding). denies: urgency, dysuria, discharge Musculoskeletal: denies: back pain, joint swelling, arthralgia Skin: denies: rash, lesions Neurological: denies: headache, weakness, paresthesias Psychiatric: denies: anxiety, depression Hematological/Lymphatic: denies: easy bleeding, easy bruising ED Past Medical Hx - Past Medical History Hx Hypertension: Yes Hx Congestive Heart Failure: No Hx Diabetes: Yes (non compliant) Hx Deep Vein Thrombosis: No Hx Renal Disease: No Hx Sickle Cell Disease: No Hx Seizures: No Hx Psychiatric Treatment: Yes (depression) Hx Asthma: No Hx COPD: No Hx HIV: No Additional medical history: vocal cord surgery, PICA (eats chalk and chris) - Surgical History Additional Surgical History: vocal cords repair, x2 - Social History Smoking Status: Never Smoker - Medications Home Medications: Home Medications Medication Instructions Recorded Confirmed Last Taken Type Butalb/Acetaminophen/Caffeine 1 cap PO Q6HR PRN #30 cap 10/15/18 11/10/18 Unknown Rx [Fioricet 50-300-40 mg CAP] metFORMIN [Glucophage] 500 mg PO BID #60 tablet 10/15/18 11/10/18 Unknown Rx Butalb/Acetaminophen/Caffeine 1 cap PO Q6HR PRN #30 cap 10/17/18 11/10/18 Unknown Rx [Fioricet 50-300-40 mg CAP] metFORMIN [Glucophage] 500 mg PO BID #60 tablet 10/17/18 11/10/18 Unknown Rx Ferrous Sulfate [Ferrous Sulfate 324 mg PO BID #60 tablet. 11/10/18 Unknown Rx 324 MG] Glimepiride [Amaryl] 1 mg PO QAM 30 Days #30 tablet 11/10/18 Unknown Rx Ibuprofen [Motrin] 600 mg PO Q6H PRN #60 tablet 11/10/18 Unknown Rx Labetalol [Labetalol 100mg TAB] 100 mg PO BID #60 tablet 11/10/18 Unknown Rx oxyCODONE /ACETAMINOPHEN [Percocet 1 tab PO Q6HR PRN #30 tablet 11/10/18 Unknown Rx 5/325] Famotidine [Pepcid] 20 mg PO BID #60 tablet 11/11/18 Unknown Rx Ibuprofen [Motrin] 800 mg PO Q8HR PRN #30 tablet 11/11/18 Unknown Rx Labetalol [Labetalol 200mg TAB] 200 mg PO BID #60 tablet 11/11/18 Unknown Rx Ferrous Sulfate [Ferrous Sulfate 324 mg PO DAILY #30 tablet. 11/27/18 Unknown Rx 324 MG] cephALEXin [Keflex] 500 mg PO Q8HR #30 cap 11/27/18 Unknown Rx ED Physical Exam - General Limitations: No Limitations General appearance: alert, in no apparent distress - Head Head exam: Present: atraumatic, normocephalic, normal inspection - Eye Eye exam: Present: normal appearance, PERRL, EOMI. Absent: scleral icterus, conjunctival injection, nystagmus, periorbital swelling Pupils: Present: normal accommodation - ENT ENT exam: Present: normal exam, normal orophraynx, mucous membranes moist, TM's normal bilaterally, normal external ear exam - Neck Neck exam: Present: normal inspection, full ROM - Respiratory Respiratory exam: Present: normal lung sounds bilaterally. Absent: respiratory distress, wheezes, rales, stridor, chest wall tenderness, accessory muscle use, prolonged expiratory - Cardiovascular Cardiovascular Exam: Present: regular rate, normal rhythm, normal heart sounds. Absent: systolic murmur, diastolic murmur, rubs, gallop - GI/Abdominal GI/Abdominal exam: Present: soft, normal bowel sounds. Absent: distended, tenderness, rebound, hyperactive bowel sounds, hypoactive bowel sounds, mass - Rectal Rectal exam: Present: deferred - Bi-manual exam: Present: other (deferred; patient declined) - Extremities Exam Extremities exam: Present: normal inspection, full ROM, normal capillary refill - Back Exam Back exam: Present: normal inspection, full ROM. Absent: tenderness, CVA tenderness (R), muscle spasm, vertebral tenderness - Neurological Exam Neurological exam: Present: alert, oriented X3, CN II-XII intact, normal gait, reflexes normal - Psychiatric Psychiatric exam: Present: normal affect, normal mood - Skin Skin exam: Present: warm, dry, intact, normal color. Absent: rash ED Course Vital Signs 11/26/18 11/26/18 11/26/18 19:52 19:53 20:00 Temperature 98.7 F Pulse Rate 94 H 88 Respiratory 18 18 Rate Blood Pressure 107/58 122/57 O2 Sat by Pulse 100 99 100 Oximetry 11/26/18 11/26/18 11/26/18 20:06 20:30 21:00 Temperature Pulse Rate 88 79 Respiratory 18 9 L 15 Rate Blood Pressure 122/57 122/57 O2 Sat by Pulse 100 100 Oximetry 11/26/18 11/26/18 11/26/18 22:00 22:30 23:00 Temperature Pulse Rate 76 80 76 Respiratory 20 18 17 Rate Blood Pressure 122/56 122/56 137/69 O2 Sat by Pulse 99 100 98 Oximetry - Reevaluation(s) Reevaluation #1: 11/27/18 02:09 This is a 23-year-old female who is approximately 3 weeks who presents to the ED with persistent heavy vaginal bleeding for the last 3 weeks. Patient also complains of suprapubic pain. In the ED, patient is alert and oriented 3 and is not in distress, playing around on the phone while watching videos and talking to follow-up with deformity. Lab test results were reviewed and show seated and is not tract infection. Patient is a 25 and 26.9 respectively with an MCV of 71%. These findings are compatible to the previous values. The patient's past medical history of iron deficiency anemia. The rest the left test results are nonactionable including hCG Quant of 167. Patient w as treated in the ED with normal saline 1 L IV fluid bolus, also given antiemetics and antacids. On reevaluation, patient's pain is well-controlled with medication the patient demanded to be discharged home. Patient was discharged home on antibiotics and Iron tablets were taken by mouth daily, and was advised to follow-up with her [facility] physician for further evaluation and possibly be placed back on control tablets after she demanded to be placed on control tablets in the ED. Patient was otherwise advised to return to the ED immediately if symptoms get worse. ED Medical Decision Making - Lab Data Result diagrams: 11/26/18 20:24 11/26/18 20:24 - Medical Decision Making This is a 23-year-old female who is approximately 3 weeks who presents to the ED with persistent heavy vaginal bleeding for the last 3 weeks. Patient also complains of suprapubic pain. In the ED, patient is alert and oriented 3 and is not in distress, playing around on the phone while watching [employer] and talking to follow-up with deformity. Lab test results were reviewed and show seated and is not tract infection. Patient is a 25 and 26.9 respectively with an MCV of 71%. These findings are compatible to the previous values. The patient's past medical history of iron deficiency anemia. The rest the left test results are nonactionable including hCG Quant of 167. Patient was treated in the ED with normal saline 1 L IV fluid bolus, also given antiemetics and antacids. On reevaluation, patient's pain is well-controlled with medication the patient demanded to be discharged home. Patient was discharged home on antibiotics and Iron tablets were taken by mouth daily, and was advised to follow-up with her [facility] physician for further evaluation and possibly be placed back on control tablets after she demanded to be placed on control tablets in the ED. Patient was otherwise advised to return to the ED immediately if symptoms get worse. - Differential Diagnosis acute UTI; Abdominal pain; Post- pain Critical care attestation.: If time is entered above; I have spent that time in minutes in the direct care of this critically ill patient, excluding procedure time. ED Disposition Clinical Impression: Acute urinary tract infection, hemorrhage of vagina Iron deficiency anemia Qualifiers: Iron deficiency anemia type: chronic blood loss Qualified Code(s): D50.0 - Iron deficiency anemia secondary to blood loss (chronic) Disposition: TO HOME OR SELFCARE Is pt being admited?: No Does the pt Need Aspirin: No Condition: Stable Instructions: Iron Deficiency Anemia (ED), Urinary Tract Infection in Women (ED), Bleeding (ED) Additional Instructions: Take medication with food, drink plenty of fluids and follow-up with your primary care physician or [facility] as previously scheduled. Return to the ED immediately if symptoms get worse Prescriptions: Ferrous Sulfate [Ferrous Sulfate 324 MG] 324 mg PO DAILY #30 tablet. cephALEXin [Keflex] 500 mg PO Q8HR #30 cap Referrals: ROBERT DUBON MD [Primary Care Provider] - 3-5 Days Time of Disposition: 02:01 Print Language: ROMANIAN
[2018-11-27 02:59] VITALS: BP 135/76
== END 2018-11-27 02:10 | disposition home or self-care (01) ==
LOC: ED 19:40
DX: N39.0 Urinary tract infection, site not specified (principal); D50.0 Iron deficiency anemia secondary to blood loss (chronic); E66.01 Morbid (severe) obesity due to excess calories; Z68.43 Body mass index [BMI] 50.0-59.9, adult; I10 Essential (primary) hypertension; E11.9 Type 2 diabetes mellitus without complications; F32.9 Major depressive disorder, single episode, unspecified; Z79.899 Other long term (current) drug therapy
CPT/HCPCS: 36415; 71046; 80053; 81001; 83690; 84702; 85025; 86850; 86900; 86901; 96374; 96375; 99284; J1885; J2405; J7030